=== PATIENT | female | born 1950 | race Caucasian/White ===

== ENCOUNTER 2017-05-28 08:18 | Emergency (ER) | payer MEDICARE, SELFPAY ==
[2017-05-28 08:20] VITALS: BP 153/66; PULSE 75; RESP 16; TEMP 36.4; O2SAT 99; BMI 23.0
[2017-05-28] MEDS: Ondansetron 4 MG/2 ML Vial IV (08:47)
[2017-05-28 08:55] LABS: Absolute Lymphocyte Count 0.64 X10^3/ul (0.83-4.51); Absolute Neutrophil Count 9.2 X10^3/uL (2.0-7.7); Basophil# 0.02 X10^3/uL; Basophil% 0.2 % (0-1); Eosinophil# 0.05 X10^3/uL; Eosinophils% 0.5 % (0-5); Hematocrit 40.2 % (37-47); Hemoglobin 13.3 g/dl (12.0-15.0); Lymphocyte # 0.64 X10^3/ul (4.0); Lymphocyte % 6.1 % (19-41); Mean Corp Hgb Conc 33.1 g/gl (32-36); Mean Corpuscular Hgb 31.4 pg (27.0-32.0); Mean Corpuscular Volume 94.8 fL (81-99); Monocyte# 0.55 X10^3/uL; Monocyte% 5.3 % (0-10); Neutrophil % 87.8 % (47-70); POSITIVE COUNT NO; POSITIVE DIFFERENTIAL NO; POSITIVE MORPHOLOGY NO; Platelet Count 316 K/mm3 (150-450); RBC Distribution Width CV 14.3 % (11.6-14.6); Red Blood Count 4.24 M/mm3 (4.2-5.4); White Blood Count 10.5 K/mm3 (4.4-11.0)
--- NOTE | 2017-05-28 09:12 | ED.DCSUM_ITS ---
- ER Visit Summary Date of Service: 05/28/17 Chief Complaint: Abdominal pain that has localized to the right side History of Present Illness: The patient is a 66 F who has a history of rheumatoid arthritis and fibromyalgia presents with abdominal pain that started on Wednesday. Initially the pain was bilateral is now localized to the right side. Where patient points is near the right costal margin. She also reported bilateral back pain initially. She now has intermittent midline intrascapular pain. Pain is made worse with movement and apparently food. She does have intolerance to greasy and fried foods. She does report nausea without vomiting or diarrhea. She denies hematemesis, melena hematochezia. She denies dysuria, frequency, urgency or hematuria. She denies fever, chills or night sweats. She denies weight loss or weight gain. She denies chest pain, palpitations, fast heart rate. She denies anorexia. She did eat yogurt and have something to drink at 0630. Patient denies any ocular, visual auditory symptoms. Patient denies any URI symptoms. Patient denies cough, dyspnea, dyspnea on exertion, orthopnea or PND. Patient denies any history of trauma and denies any skin lesions. She denies paresthesia, anesthesia or motor weakness lower extremity. She denies any bowel bladder dysfunction. She was seen by her doctor on Wednesday and had outpatient tests that were done. Urine was negative for blood. Chest x-ray and rib x-rays were obtained and were unremarkable. Daughter gave me the disc from [facility] for review. Physical Examination: Vital signs remarkable for an elevated blood pressure 153/ 66. Afebrile and she is not hypoxic. Heart rate and respiratory rate are normal. Head is atraumatic normocephalic. Pupils are equal round reactive. Extraocular muscles are intact. TMs are pearly white with landmarks noted. Nares patent with no drainage. Posterior pharynx without erythema or exudate. Uvula is midline. There is no dysphonia or dysphasia. Trachea is midline. There is no stridor with auscultation of the neck. Heart is regular without murmur, gallop or rub. S1 and S2 are normal. Lungs are clear to auscultation with good movement of air bilaterally. Abdomen is soft with decreased bowel sounds and slight tympany. There is a clinical Gonzalez sign. There is no rebound tenderness. Specifically no tenderness in the proximity of McBurney's point. There is no CVA tenderness noted. There is no rash or lesions to suggest herpes varicella-zoster. There is no asymmetry, swelling, discoloration , leg vein distention, palpable cords or tenderness along the distribution of the deep venous system. Neuro exam is nonfocal Test Results: White count is 10.5 thousand with 85 segs no bands 6 lymphs. Electrode panel was marked for potassium 3.0. Hepatic profile is unremarkable. Calcium is low however albumin is low. Ultrasound of the right upper quadrant was obtained and reveals a fatty liver and a sonographic Gonzalez sign. Emergency Department Course and Treatment: IV was established and she was medicated with 4 mg of Zofran and 4 mg of morphine. She did inform me that she took half of a Percocet tablet this morning. To evaluate her right upper quadrant pain with a clinical Gonzalez sign a CBC, hepatic and lipase were ordered. Since she had yogurt at 0630 will not be able to obtain ultrasound of the right upper quadrant until 1230. Patient and family has been made aware of this fact. Treatment Plan: Home-going instructions and a outpatient HIDA scan with EF and report to go to PCP Willard Townsend Disposition: Discharged to home with family in stable and improved condition Impression: Right upper quadrant pain with sonographic Gonzalez sign Fatty liver Hypokalemia This note was generated with [employer] dictation software. It may contain incorrect words, spelling, and punctuation that were not noted in review of the chart prior to signing ED Disposition - Plan for ED Patient: Disposition: Home or Assisted Living Chief Complaint: Flank Pain Instructions: ED Abdominal Pain Gallstone Poss Referrals: Beba Townsend NP-C [Primary Care Provider] - 1-2 Weeks
[2017-05-28 09:13] LABS: AST(SGOT) 16 U/L (15-37); Alanine Aminotransfer ALT/SGPT 21 U/L (13-56); Albumin, Serum 2.9 g/dL (3.2-5.0); Alkaline Phosphatase 97 U/L (45-117); Anion Gap 7 (5-15); BUN 3 mg/dL (7-18); BUN/Creat Ratio 5.4 RATIO (10-20); Bilirubin, Direct 0.18 mg/dL (0.00-0.30); Calcium,Total 7.9 mg/dL (8.5-10.1); Chloride 102 mmol/L (98-107); Creatinine, Serum 0.56 mg/dL (0.55-1.02); EST Glomerular Filtration Rate 116 mL/min (>60); Est Glom Filt Rate - Afr Amer 140 mL/min (>60); Estimated Creatinine Clearance 71.94 ml/min; Globulin 3.4 g/dL (2.2-4.2); Glucose 100 mg/dL (74-106); Lipase 156 U/L (73-393); Protein, Total 6.3 g/dL (6.4-8.2); Sodium Level 136 mmol/L (136-145)
--- NOTE | 2017-05-28 10:02 | US_ITS ---
STUDY: ABDOMINAL ULTRASOUND - RIGHT UPPER QUADRANT REASON FOR VISIT: Female, 66 years old. Right upper quadrant pain. TECHNIQUE: Ultrasound evaluation of the right upper quadrant was performed with real-time and static block-scale imaging. TECHNICAL QUALITY: Adequate. COMPARISON: None. FINDINGS: Liver: The liver measures 11.4 cm. There is increased echogenicity consistent with fatty infiltration. The bile ducts are within normal limits. There is hepatic color flow. The direction of portal flow is hepatopetal. There is no demonstrated mass lesion. Gallbladder: Normal distended gallbladder. The gallbladder wall measures 2.0 mm. There is a positive sonographic Gonzalez's sign. There is no pericholecystic fluid. There are no gallstones. Common Bile Duct (C.B.D.): The common bile duct measures 6.0 mm. Pancreas: Normal size of the head, body of the pancreas. The tail portion is obscured due to overlying bowel gas. There is normal echogenicity of the pancreas. There is no demonstrated pancreatic mass or cyst. Right Kidney: Normal size of the right kidney. The right kidney measures 9.2 cm x 5.4 cm x 4.1 cm. Normal renal cortex. The right cortex measures 1.2 cm. There is no demonstrated renal mass or cyst. Mild fullness of the right renal collecting system. US/Gallbladder IMPRESSION: Mild degree of fatty infiltration of the liver. Positive sonographic Gonzalez's sign. Mild fullness of the right renal collecting system. Electronically Signed: Nitish Ordaz MD at 13:37 EDT Tel [phone], Service support ,
[2017-05-28 11:22] VITALS: BP 136/70; PULSE 61; RESP 18; O2SAT 100
[2017-05-28 13:35] VITALS: BP 130/70; PULSE 68; RESP 18; O2SAT 100
[2017-05-28 15:04] VITALS: BP 124/80; PULSE 68; RESP 16; O2SAT 100
== END 2017-05-28 15:12 | disposition home or self-care (01) ==
PROVIDERS: Emergency Provider Emergency Medicine; Family Provider Nurse Practitioner Family; PCP Nurse Practitioner Family
DX: R10.11 Right upper quadrant pain (principal); K76.0 Fatty (change of) liver, not elsewhere classified; E87.6 Hypokalemia; M06.9 Rheumatoid arthritis, unspecified; M79.7 Fibromyalgia; Z72.0 Tobacco use; Z79.899 Other long term (current) drug therapy
CPT/HCPCS: 76705; 80048; 80076; 83690; 85025; 96374; 96375; 99284; J2405

== ENCOUNTER → 2017-05-31 09:01 | Outpatient (CLI) | payer MEDICARE, SELFPAY ==
--- NOTE | 2017-05-31 09:05 | NM_ITS ---
CLINICAL: Female, 66 years old. Abdominal pain. NUCLEAR BILIARY SCAN TECHNIQUE: Following the intravenous administration of 5.5 mCi of Tc Mebrofenin, hepatobiliary images was performed. Cholecystokinin (0.02 ug/kg) was then administered intravenously over a 30 minute period. COMPARISON STUDIES : Comparison is made with prior ultrasound of the abdomen dated May 28, 2017. FINDINGS: Relatively prompt and homogeneous radiopharmaceutical concentration is noted by a normal sized liver. There are no parenchymal defects noted.. Gallbladder activity is identified at 30 minutes post radiopharmaceutical administration. Small bowel activity is identified at 60 minutes post radiopharmaceutical administration. Washout of the radiopharmaceutical by the hepatic parenchyma occurs in a normal fashion on qualitative inspection. The post Cholecystokinin gallbladder ejection fraction is calculated at INSERT TIME minutes following Cholecystokinin administration was noted to be 38% (normal greater than 35%). NM/Hepatobilliary Imaging IMPRESSION: Normal 99m TC Mebrofenin hepatobiliary imaging survey with Cholecystokinin. A gallbladder ejection fraction calculated to be greater than 35% following the administration of Cholecystokinin makes the probability of functional hepatobiliary disease (gallbladder and/or sphincter of Oddi dyskinesia) and/or organic hepatobiliary disease (chronic acalculous cholecystitis and/or cystic duct syndrome) to be low. (Kalin Richards al, Journal of Nuclear Medicine 32:1695, 1991). Electronically Signed: Nitish Ordaz MD at 11:04 EDT Tel [phone], Service support ,
== END ==
PROVIDERS: Family Provider Nurse Practitioner Family; PCP Nurse Practitioner Family; Visit Provider Emergency Medicine
DX: R10.11 Right upper quadrant pain (principal)
CPT/HCPCS: 78226; A9537

== ENCOUNTER 2018-12-29 09:32 | Emergency (ER) | payer MEDICARE, SELFPAY ==
[2018-12-29 09:33] VITALS: BP 187/89; PULSE 78; RESP 14; TEMP 36.7; O2SAT 99; BMI 24.0
--- NOTE | 2018-12-29 09:55 | ED.DCSUM_ITS ---
History of Present Illness Chief Complaint: Allergic Reaction Informant: Patient, Family Onset: - December 21 Context: Sudden Onset Timing: Continuous Quality: Reticulocyte erythematous rash Location: Upper extremities, face and anterior neck Current Severity: Moderate Maximum Severity: Moderate Worsened by: Nothing Relieved by: Nothing Associated Symptoms: No associated symptoms Narrative: Patient is a 68-year-old woman who was seen in urgent care and treated with 6- day course of prednisone and Kenalog injection for presumed poison sumac. Patient states she is been taking Benadryl. She presents today because of facial swelling with a pruritic erythematous rash. She states she knows it is poison sumac based on the plant leaf. She has no other symptoms. Prior similar symptoms: Yes Recent Illness/Hospitalization: Yes - Past Medical History (1) History of hypertension Status: Acute Past Medical History - Allergies and Home Meds Allergies/Adverse Reactions: Allergies codeine Allergy (Verified 12/29/18 09:33) Nausea Primary Care Physician: Beba Townsend NP-C [Primary Care Provider] - Prior records reviewed: No Lives: Alone Smoking Status: Never smoker Review of Systems General: Denies: Chills, Fever Eyes: Denies: Visual changes - bilaterally, Blurred Vision - bilaterally Skin: Reports: Rash, Wounds. Denies: Abscess, Abrasions Allergy: Reports: - - Complains of facial swelling.. Denies: Uticaria, Swelling of the mouth, Swelling of the tongue Physical Exam Vital Signs/Narrative: Vital Signs Temp Pulse Resp BP Pulse Ox 12/29/18 09:33 98.1 F 78 14 187/89 H 99 Inital Vital Signs reviewed: Yes General: Well nourished, Well developed, No Acute Distress Head: Normocephalic, Atraumatic Eyes: Perrl, EOMI. Negative for: Pale conjunctiva, Scleral icterus ENT: No rhinorrhea Cardiovascular: Regular rate, Regular rhythm Respiratory: No distress Skin: Normal color, Rash - He has a rash consistent with contact dermatitis face, anterior neck and upper extremity Neurological: Alert, Oriented x3, Cranial nerves II-XII grossly intact, Normal Strength, Normal Sensation Psychological: Normal affect, Normal Mood Diagnostic/Tx/Re-eval - Medical Decision Making Patient's history and physical exam is consistent with contact dermatitis. Since patient was only on a 6-day course of prednisone suspect duration was not long enough and reason why rash has not resolved and worsening. She received 60 mg of prednisone in the emergency department and was discharged with tapering dose over 14 days. ED Disposition - Plan for ED Patient: Disposition: Home or Assisted Living Diagnosis: Allergic dermatitis due to poison sumac Prescriptions: Prednisone 10 mg PO UD #33 tab Prescription Printed Referrals: Beba Townsend NP-C [Primary Care Provider] - 1 Week if not improving Additional Instructions: Take prednisone until gone. Do not apply Benadryl cream or liquid to your skin and do not use a steroid cream on your face.
[2018-12-29] MEDS: predniSONE 20 MG Tablet 60 MG PO (11:04)
== END 2018-12-29 11:14 | disposition home or self-care (01) ==
PROVIDERS: Emergency Provider Emergency Medicine; Family Provider Nurse Practitioner Family; PCP Nurse Practitioner Family
DX: L23.7 Allergic contact dermatitis due to plants, except food (principal); I10 Essential (primary) hypertension
CPT/HCPCS: 99283

== ENCOUNTER 2019-01-16 13:13 | Emergency (ER) | payer MEDICARE, SELFPAY ==
[2019-01-16 13:14] VITALS: BP 146/68; PULSE 80; RESP 19; TEMP 37.1; O2SAT 99; BMI 22.4
--- NOTE | 2019-01-16 13:43 | RAD_ITS ---
STUDY: X-RAY - LUMBAR SPINE REASON FOR EXAM: Female, 68 years old. Low back pain due to injury. TECHNIQUE: AP and lateral view(s) of the lumbar spine were obtained. COMPARISON: None FINDINGS: There is an exaggerated lumbar lordosis. There is no substantial scoliosis. Minimal anterolisthesis of L4 on L5. A grade 1 anterolisthesis of L5 on S1 with spondylolysis of the pars interarticularis. Normal vertebral bodies and endplates. Mild degree of disc space narrowing at the L5-S1 level. Mild degree of loss of height of the L2 vertebrae. Almost complete collapse of the T9 vertebrae. The soft tissue structures are unremarkable. RAD/Lumbar Spine 2 or 3 Views IMPRESSION: Degenerative changes of the spine, as detailed above. Spondylolisthesis of L5 on S1 due to spondylolysis of the pars interarticularis of the L5 vertebrae. Mild degree of loss of height of the L2 vertebrae. Almost complete collapse of the T9 vertebrae. Electronically Signed: Nitish Ordaz, at 15:04 EST , Service support ,
[2019-01-16] MEDS: oxyCODONE 5 MG Tablet PO (13:59)
--- NOTE | 2019-01-16 14:25 | ED.DCSUM_ITS ---
History of Present Illness Chief Complaint: Back Informant: Patient Onset: Days Context: Gradual Onset Timing: Continuous Current Severity: Moderate Maximum Severity: Moderate Narrative: Patient presents to the emergency department with atraumatic low back pain. She states she has a history of back pain, but this feels different. States over the past 3 weeks, she had worsening, burning pain across her low back. She states is worse when she moves or twists. She does have history of prior compression fracture of her T9 vertebrae. She has had epidural injections in the past. She denies any problems with bowel or bladder. She denies any fevers or chills. She has not taken anything for her pain today. She did state that her primary care put on baclofen which she states is not really helped much. Prior similar symptoms: No Recent Illness/Hospitalization: No Past Medical History - Allergies and Home Meds Allergies/Adverse Reactions: Allergies codeine Allergy (Verified 01/16/19 13:16) Nausea Primary Care Physician: Beba Townsend NP-C [Primary Care Provider] - Prior records reviewed: Yes Past Medical History: - Smoking Status: Never smoker Review of Systems ROS: - COPD, back pain General: Denies: Chills, Fever, Sweats Eyes: Denies: Visual changes - bilaterally, Diplopia ENT: Denies: Rhinorrhea, Sore throat Cardiovascular: Denies: Chest pain, Palpitations Respiratory: Denies: Dyspnea, Cough, Dyspnea on exertion Gastrointestinal: Denies: Abdominal pain, Nausea, Vomiting, Diarrhea, Melena, Hematochezia Genitourinary: Denies: Dysuria, Hematuria, Frequency Musculoskeletal: Reports: Back pain. Denies: Extremity Pain Skin: Denies: Rash, Wounds Neurological: Denies: Headache, Weakness, Numbness Physical Exam Vital Signs/Narrative: Vital Signs Temp Pulse Resp BP Pulse Ox 01/16/19 13:14 98.7 F 80 19 H 146/68 H 99 Inital Vital Signs reviewed: Yes General: Well nourished, Well developed, No Acute Distress Head: Normocephalic, Atraumatic Eyes: Perrl, EOMI ENT: Moist mucous membranes, No rhinorrhea Neck: Supple, Nontender Cardiovascular: Regular rate, Regular rhythm, No murmurs Respiratory: No distress, CTA bilaterally, Chest nontender Abdomen: Soft, Nontender, Nondistended, Normal bowel sounds Back: Nontender, Normal Inspection Extremities: Nontender, No edema Skin: Normal color, No rash Neurological: Alert, Oriented x3, Cranial nerves II-XII grossly intact, Normal Strength, Normal Sensation Psychological: Normal affect, Normal Mood Diagnostic/Tx/Re-eval Clinical Impression(s) from Imaging Studies Lumbar Spine X-Ray 01/16/19 13:43 IMPRESSION: Degenerative changes of the spine, as detailed above. Spondylolisthesis of L5 on S1 due to spondylolysis of the pars interarticularis of the L5 vertebrae. Mild degree of loss of height of the L2 vertebrae. Almost complete collapse of the T9 vertebrae. Electronically Signed: Nitish Ordaz, at 15:04 EST , Service support , - Medical Decision Making The patient presents with low back pain. Is worse when she moves. She has no red flag symptoms. She has no weakness of her extremities. She does have history of compression fracture. X-rays were obtained of the low back. There was some loss of disc height of L2. I do feel that she may have a mild compression fracture of this area. She was given oral analgesics and was resting comfortably. At this point I do feel that she is safe for outpatient therapy. She will be given a short course of analgesics and was counseled to f ollow-up with her primary care she is likely going to the bone scan and may benefit from injections that she has had in the past. She will be discharged home. Impression 1. L2 compression fracture ED Disposition - Plan for ED Patient: Disposition: Home or Assisted Living Instructions: Back Fracture (Compression Fracture) Prescriptions: Oxycodone HCl/Acetaminophen [Percocet 5/325] 1 tab PO Q6H PRN PRN 3 Days #12 tab PRN Reason: Pain Prescription Printed Referrals: Beba Townsend NP-C [Primary Care Provider] -
[2019-01-16 15:37] VITALS: BP 160/88; PULSE 67; RESP 18; O2SAT 100
== END 2019-01-16 15:50 | disposition home or self-care (01) ==
PROVIDERS: Emergency Provider Emergency Medicine; Family Provider Nurse Practitioner Family; PCP Nurse Practitioner Family
DX: M48.56XA Collapsed vertebra, not elsewhere classified, lumbar region, initial encounter for fracture (principal)
CPT/HCPCS: 72100; 99283

== ENCOUNTER 2019-02-28 21:17 | Emergency (ER) | payer MEDICARE, SELFPAY ==
[2019-02-28 21:18] VITALS: BP 165/77; PULSE 75; RESP 17; TEMP 36; O2SAT 100; BMI 22.4
--- NOTE | 2019-02-28 21:40 | ED.VIS.GEN ---
History of Present Illness Chief Complaint: Back Informant: Patient Onset: Today Context: Sudden Onset Timing: Continuous Current Severity: Moderate Maximum Severity: Moderate Narrative: The patient is a 68-year-old female with history of prior L2 compression fracture who follows with pain management the presents to the emergency department with back pain. Patient states that she is scheduled for outpatient epidural injection. She states that she had her medications refilled she is been doing well. Today, she was doing dishes and arched her back. She had sudden onset severe pain. It does not radiate down her legs. She denies any change in gait, trouble urinating, or numbness in her groin. She states it is just pain. Prior similar symptoms: Yes Recent Illness/Hospitalization: No Past Medical History - Allergies and Home Meds Allergies/Adverse Reactions: Allergies codeine Allergy (Verified 02/28/19 21:18) Nausea Primary Care Physician: Beba Townsend NP-C [Primary Care Provider] - Prior records reviewed: Yes Past Medical History: - - COPD, compression fracture Surgical History: noncontributory Smoking Status: Former smoker Review of Systems General: Denies: Chills, Fever, Sweats Eyes: Denies: Visual changes - bilaterally, Diplopia ENT: Denies: Rhinorrhea, Sore throat Cardiovascular: Denies: Chest pain, Palpitations Respiratory: Denies: Dyspnea, Cough, Dyspnea on exertion Gastrointestinal: Denies: Abdominal pain, Nausea, Vomiting, Diarrhea, Melena, Hematochezia Genitourinary: Denies: Dysuria, Hematuria, Frequency Musculoskeletal: Reports: Back pain. Denies: Extremity Pain Skin: Denies: Rash, Wounds Neurological: Denies: Headache, Weakness, Numbness Physical Exam Vital Signs/Narrative: Vital Signs Temp Pulse Resp BP Pulse Ox 02/28/19 21:18 96.8 F L 75 17 165/77 H 100 Inital Vital Signs reviewed: Yes General: Well nourished, Well developed, No Acute Distress Head: Normocephalic, Atraumatic Eyes: Perrl, EOMI ENT: Moist mucous membranes, No rhinorrhea Neck: Supple, Nontender Cardiovascular: Regular rate, Regular rhythm, No murmurs Respiratory: No distress, CTA bilaterally, Chest nontender Abdomen: Soft, Nontender, Nondistended, Normal bowel sounds Back: Normal Inspection, Spinal tenderness Extremities: Nontender, No edema Skin: Normal color, No rash Neurological: Alert, Oriented x3, Cranial nerves II-XII grossly intact, Normal Strength, Normal Sensation Psychological: Normal affect, Normal Mood Diagnostic/Tx/Re-eval - Medical Decision Making The patient presents to the emergency department with back pain. She has a history of compression fracture. Her pulses are normal. Her reflexes are normal. She has no pain going down her legs. I did repeat her x-rays. There is no progression of her fracture. She was given analgesics with improvement. At this point, I do feel this is an exacerbation of her chronic pain secondary to her compression fracture. She is safe outpatient therapy. Patient is comfortable with this plan of care and she will follow-up with pain management. Impression 1. Acute on chronic low back pain with compression fracture ED Disposition - Plan for ED Patient: Instructions: BACK PAIN (Acute or Chronic), Back Fracture (Compression Fracture) Referrals: Beba Townsend NP-C [Primary Care Provider] -
[2019-02-28] MEDS: Morphine 4 MG/ML Syringe IV ×2 (22:19→23:06)
[2019-02-28] MEDS: Ondansetron 4 MG/2 ML Vial IV (22:19)
--- NOTE | 2019-02-28 22:46 | RAD_ITS ---
STUDY: X-RAY - LUMBAR SPINE REASON FOR EXAM: Female, 68 years old. lower back pain. hx of T9 and L2 fx TECHNIQUE: 3 view(s) of the lumbar spine were obtained. COMPARISON: Lumbar spine x-ray dated January 16, 2019 FINDINGS: Normal lumbar lordosis. Mild levoscoliosis is reidentified. Chronic T9 vertebral plana deformity with significant loss of height as well as L2 chronic compression deformity. Anterolisthesis of L5 on S1 of 4 to 5 mm is present and unchanged from the prior study. Mild disc space narrowing is present at L5-S1. The remaining disc spaces are preserved. No acute fractures are seen. The soft tissue structures are unremarkable. RAD/Lumbar Spine 2 or 3 Views IMPRESSION: Degenerative changes of the spine, as detailed above. Electronically Signed: Cooper Manuel MD at 23:09 EST , Service support ,
[2019-02-28 23:18] VITALS: BP 150/72; PULSE 80; RESP 14; O2SAT 96
== END 2019-02-28 23:30 | disposition home or self-care (01) ==
LOC: ED 21:38
PROVIDERS: Emergency Provider Emergency Medicine; Family Provider Nurse Practitioner Family; PCP Nurse Practitioner Family
DX: M54.5 Low back pain (principal); G89.29 Other chronic pain; S32.029D Unspecified fracture of second lumbar vertebra, subsequent encounter for fracture with routine healing; J44.9 Chronic obstructive pulmonary disease, unspecified; Z87.891 Personal history of nicotine dependence; Z79.891 Long term (current) use of opiate analgesic; X58.XXXD Exposure to other specified factors, subsequent encounter
CPT/HCPCS: 72100; 96374; 96375; 96376; 99282; A4216; J2405

== ENCOUNTER 2019-03-09 09:02 | Emergency (ER) | payer MEDICARE, SELFPAY ==
[2019-03-09 09:03] VITALS: BP 153/88; PULSE 83; RESP 16; TEMP 35.9; BMI 22.2
--- NOTE | 2019-03-09 09:27 | ED.DCSUM_ITS ---
- ER Visit Summary Date of Service: 03/09/19 Chief Complaint: Acute on chronic back pain History of Present Illness: The patient is a 68 F history of compression fractures of the lumbar vertebra #2. Also has known degenerative disc disease of L5-S1. Sees pain management in [place]. She has had an epidural injection a while ago. Not recently. Patient states she is having more pain. She denies any fall or trauma. She denies any fever. She denies any weakness, numbness of the lower extremities or any bowel or bladder incontinence or retention. She has not seen a airport operations specialist. Physical Examination: Older female no acute distress. Vital signs are stable and afebrile. H EENT exam unremarkable. Neck nontender. Lungs clear to auscultation bilaterally. Heart regular rhythm no murmur. Abdomen soft nontender normal bowel sounds no peritoneal signs. Patient is moving all 4 extremities. Normal motor strength sensation both upper and lower extremities. No cauda equina. No saddle anesthesia. Dorsi and plantarflexion intact. Back exam shows a large lipoma in her upper back. Spine otherwise is unremarkable. She complains of pain in the lumbar spine is not really reproducible. There is no ecchymosis or bruising. No redness or warmth. Neurologic exam is u nremarkable. Again no cauda equina. Test Results: None Emergency Department Course and Treatment: IM injection of morphine. P.o. Zofr an. Treatment Plan: Follow-up with a airport operations specialist. I did recommend Dr. Fletcher Ramachandran of the [facility] to the patient. Disposition: Discharge Impression: Acute on chronic back pain with a history of degenerative disc disease and prior compression fracture This note was generated with [employer] dictation software. It may contain incorrect words, spelling, and punctuation that were not noted in review of the chart prior to signing ED Disposition - Plan for ED Patient: Referrals: Beba Townsend NP-C [Primary Care Provider] -
--- NOTE | 2019-03-09 09:31 | DCINST.ED_ITS ---
ED Disposition - Plan for ED Patient: Disposition: Home or Assisted Living Instructions: BACK PAIN (Acute or Chronic) Referrals: Beba Townsend NP-C [Primary Care Provider] - As Needed Fletcher Ramachandran MD [NON-STAFF] - As soon as possible Additional Instructions: Follow-up with a environmental health specialist for further evaluation of your back. They may want to get an MRI. They can also evaluate your back and the imaging results to lay out a plan of treatment and/or surgery if necessary.
[2019-03-09] MEDS: Ondansetron ODT 4 MG Tablet 8 MG PO (09:52)
[2019-03-09] MEDS: morphine 10 MG/ML Syringe IM (09:52)
[2019-03-09 10:21] VITALS: BP 142/61; PULSE 74; RESP 16; O2SAT 97
== END 2019-03-09 10:22 | disposition home or self-care (01) ==
LOC: ED 09:39
PROVIDERS: Emergency Provider Emergency Medicine; Family Provider Nurse Practitioner Family; PCP Nurse Practitioner Family
DX: M54.5 Low back pain (principal); G89.29 Other chronic pain; M51.37 Other intervertebral disc degeneration, lumbosacral region
CPT/HCPCS: 96372; 99282

== ENCOUNTER 2019-03-09 19:11 | Inpatient (IN) | payer MEDICARE, SELFPAY ==
[2019-03-09 09:03] VITALS: BMI 22.2
[2019-03-09 19:12] VITALS: BP 148/90; PULSE 84; RESP 16; TEMP 36.7; O2SAT 97; BMI 22.2
--- NOTE | 2019-03-09 19:50 | EKG12_ITS ---
Test Reason : DYSRHYTHMIA Blood Pressure : / mmHG Vent. Rate : 078 BPM Atrial Rate : 078 BPM P-R Int : 156 ms QRS Dur : 068 ms QT Int : 398 ms P-R-T Axes : 010 065 027 degrees QTc Int : 453 ms Normal sinus rhythm Normal ECG Confirmed by BESSIE IRVIN ([id number]), magazine editor DELVIN GOMEZ ([id number]) on 03/14/2019 3:04:01 PM Referred By: Oh Paalcio Confirmed By:BESSIE IRVIN
--- NOTE | 2019-03-09 19:51 | ED.VIS.GEN ---
History of Present Illness Chief Complaint: Abn Labs Detail of Chief Complaint: Hyponatremia Informant: Patient Onset: Today Narrative: Patient has had low back pain without sciatica for the past week or 2. It was worse in the last couple days, causing her to lose some sleep, and because of that she feels tired. She was here in the ER earlier today and had a dose of morphine for her low back pain which helped and she went home and had some outpatient labs per her PCP, and when the sodium came back at 115 she was advised to come to the ER right away. She has had no lapses in consciousness or seizures or confusion. She states she feels a little lightheaded earlier but she thought it was because of the morphine, felt a little constipated after that, and states that she has tried to stay well-hydrated by drinking about 8 bottles of water today. She usually drinks a lot of water but they cannot quantify, but that is a lot for her. - Past Medical History (1) History of hypertension Status: Chronic Past Medical History - Allergies and Home Meds Allergies/Adverse Reactions: Allergies codeine Allergy (Verified 03/09/19 19:14) Nausea Primary Care Physician: Beba Townsend NP-C [Primary Care Provider] - Surgical History: noncontributory Lives: With Family Smoking Status: Former smoker Review of Systems General: Reports: Malaise. Denies: Chills, Fever, Sweats Eyes: Denies: Visual changes - bilaterally, Diplopia ENT: Denies: Rhinorrhea, Sore throat Cardiovascular: Denies: Chest pain, Palpitations Respiratory: Denies: Dyspnea, Cough, Dyspnea on exertion Gastrointestinal: Denies: Abdominal pain, Nausea, Vomiting, Diarrhea, Melena, Hematochezia Genitourinary: Denies: Dysuria, Hematuria, Frequency Musculoskeletal: Reports: Back pain. Denies: Neck pain, Extremity Pain Skin: Denies: Rash, Wounds Neurological: Denies: Headache, Weakness, Numbness Physical Exam Vital Signs/Narrative: Vital Signs Temp Pulse Resp BP Pulse Ox 03/09/19 19:12 98.0 F 84 16 148/90 H 97 Inital Vital Signs reviewed: Yes General: Well nourished, Well developed, No Acute Distress Head: Normocephalic, Atraumatic Eyes: Perrl, EOMI ENT: Moist mucous membranes, No rhinorrhea Neck: Supple, Nontender Cardiovascular: Regular rate, Regular rhythm, No murmurs Respiratory: No distress, CTA bilaterally, Chest nontender Abdomen: Soft, Nontender, Nondistended, Normal bowel sounds Back: Normal Inspection, - - diffuse lumbosacral tenderness paraspinal bilat.. Negative for: Spinal tenderness Extremities: Nontender, No edema, - - neg straight leg raises bilat. Skin: Normal color, No rash Neurological: Alert, Oriented x3, Cranial nerves II-XII grossly intact, Normal Strength, Normal Sensation Psychological: Normal affect, Normal Mood Diagnostic/Tx/Re-eval Laboratory Results 03/09/19 03/09/19 03/09/19 20:03 20:03 21:05 WBC 13.8 H RBC 4.82 Hgb 14.1 Hct 40.7 MCV 84.4 MCH 29.3 MCHC 34.6 RDW Std Deviation 39.6 RDW Coeff of Timo 12.8 Plt Count 354 MPV 7.8 Immature Gran % (Auto) 1.200 H Neut % (Auto) 84.1 H Lymph % (Auto) 6.2 L [place] % (Auto) 7.5 Eos % (Auto) 0.9 Baso % (Auto) 0.1 Absolute Neuts (auto) 11.6 H Absolute Lymphs (auto) 0.85 Nucleated RBC % 0 Sodium 117 L* Potassium 4.0 Chloride 83 L Carbon Dioxide 28.0 Anion Gap 6 BUN 6 L Creatinine 0.54 L Estim Creat Clear Calc 39.21 Est GFR (MDRD) Af Amer 146 Est GFR (MDRD) Non-Af 120 BUN/Creatinine Ratio 11.2 Glucose 111 H Calcium 8.7 Urine Color Yellow Urine Clarity Clear Urine pH 6.0 Ur Specific [place] 1.020 Urine Protein 15 H Urine Glucose (UA) Normal Urine Ketones 5 H Urine Occult Blood 10 H Urine Nitrite Negative Urine Bilirubin Negative Urine Urobilinogen Normal Ur Leukocyte Esterase 500 H Urine RBC 0 SEEN Urine WBC 25-50 SEEN Ur Squamous Epith Cells 5-10 SEEN Ur Renal Epithelial Cell 0-5 SEEN Urine Bacteria 0 SEEN Urine Mucus 0 SEEN - Medical Decision Making We confirmed the patient's hyponatremia at 117 and associated hypochloremia. The rest of her electrolytes are okay. She does apparently have a urinary tract infection. Unknown if that is related or not. She could have water intoxication with the amount of water that she drinks, but she will probably need further work-up to rule out other things in the hospital. Started her on slow normal saline and we cultured her urine and gave her a dose of Rocephin. ED Disposition - Plan for ED Patient: Disposition: Acute Care Hospital [facility] Diagnosis: Hyponatremia, UTI (urinary tract infection) Referrals: Beba Townsend, ENEDINA-C [Primary Care Provider] -
[2019-03-09] MEDS: 0.9% Normal Saline 1,000 ML 125 ML IV (20:09)
[2019-03-09 20:14] LABS: Absolute Lymphocyte Count 0.85 X10^3/uL (0.83-4.51); Absolute Neutrophil Count 11.6 X10^3/uL (2.0-7.7); Basophil# 0.02 X10^3/uL; Basophil% 0.1 % (0-1); Eosinophil# 0.12 X10^3/uL; Eosinophils% 0.9 % (0-5); Hematocrit 40.7 % (37-47); Hemoglobin 14.1 g/dL (12.0-15.0); Lymphocyte # 0.85 X10^3/ul (4.0); Lymphocyte % 6.2 % (19-41); Mean Corp Hgb Conc 34.6 g/dL (32-36); Mean Corpuscular Hgb 29.3 pg (27.0-32.0); Mean Corpuscular Volume 84.4 fL (81-99); Mean Platelet Vol. 7.8 fl (6.2-12.0); Monocyte# 1.03 X10^3/uL; Monocyte% 7.5 % (0-10); NRBC Flagged by Analyzer 0 % (0-5); Neutrophil # 11.61 X10^3/uL (2.7-7.7); Neutrophil % 84.1 % (47-70); Platelet Count 354 K/mm3 (150-450); RBC Distribution Width CV 12.8 % (11.6-14.6); RBC Distribution Width SD 39.6 fl (35.1-43.9); Red Blood Count 4.82 M/mm3 (4.2-5.4); White Blood Count 13.8 K/mm3 (4.4-11.0)
[2019-03-09] MEDS: oxyCODONE 5 MG Tablet 2.5 MG PO (20:23)
[2019-03-09 20:26] VITALS: BP 118/65; PULSE 81; RESP 14; O2SAT 100
[2019-03-09 20:31] LABS: Anion Gap 6 (5-15); BUN 6 mg/dL (7-18); BUN/Creat Ratio 11.2 RATIO (10-20); Calcium,Total 8.7 mg/dL (8.5-10.1); Chloride 83 mmol/L (98-107); Creatinine, Serum 0.54 mg/dL (0.55-1.02); EST Glomerular Filtration Rate 120 mL/min (>60); Est Glom Filt Rate - Afr Amer 146 mL/min (>60); Estimated Creatinine Clearance 39.21 ml/min; Glucose 111 mg/dL (74-106); Sodium Level 117 mmol/L (136-145)
[2019-03-09 21:18] LABS: Bacteria 0 SEEN /hpf (None Seen); Mucous, Urine 0 SEEN /hpf (<or=2+); Red Blood Cells-Urine 0 SEEN /hpf (0-5)
[2019-03-09 21:25] LABS: Color, Urine Yellow (Yellow); Glucose, Dipstick Normal (Normal); Ketone-Dipstick 5 mg/dl (Negative); Leukocyte Esterase-Dipstick 500 /ul (Negative); Nitrite-Dipstick Negative (Negative); Occult Blood-Urine 10 /ul (Negative); Protein-Dipstick 15 mg/dl (Negative); Urine Bilirubin Dipstick Negative (Negative); Urine Clarity Clear (Clear); Urine Urobilinogen Normal (Normal)
[2019-03-09 21:38] LABS: White Blood Cells 25-50 SEEN /hpf (0-5)
[2019-03-09 21:39] LABS: Squamous Epithelial Cells - UA 5-10 SEEN /hpf (5-10)
[2019-03-09 21:40] LABS: Renal Epithelial Cells 0-5 SEEN /hpf (0-5)
[2019-03-09 21:50] VITALS: BP 118/65; PULSE 86; RESP 17; O2SAT 100
[2019-03-09] MEDS: Ceftriaxone 1 GM/50 ML BAG IV (23:40)
--- NOTE | 2019-03-09 23:48 | PCM.HP.STD ---
Problem List (1) Chronic back pain Status: Chronic (2) Severe hyponatremia Status: Acute (3) Alcohol abuse Status: Acute (4) Depression Status: Chronic (5) Fibromyalgia Status: Chronic (6) Hypertension Status: Chronic (7) UTI (urinary tract infection) Status: Suspected History of Present Illness Date of Admission: 03/09/19 Chief Complaint: Abnormal blood work. The patient is a 68 year old F patient with past medical history as mentioned above referred to the emergency department by her PCP for abnormal blood work. Today morning, patient came to the emergency department for acute on chronic low back pain, received IV morphine injection and she was discharged. Later on the day, she went to her PCPs office and she had blood work. She was found to have serum sodium of 115 and she was advised to come to ER by her PCP. Apart from her back pain which has been chronic, she had no other complaints. She denied abdominal pain, nausea or vomiting. She denied constipation or diarrhea. She denied urinary symptoms. She denied chest pain or shortness of breath. At this time, she mentioned that her back pain is getting better but still there. She will history of hypertension which seemed to be under control with atenolol. She will history of depression and fibromyalgia and she has been on duloxetine. She history of alcohol abuse, has been drinking every day for a very long time, more than 30 years and her last drink was last night. In the emergency department, her vital signs were stable. Her routine blood work was remarkable for mild leukocytosis, sodium of 117, otherwise normal. Urinalysis revealed clear urine, negative for nitrite, there was 500 leukocyte esterase, 25-50 WBCs and no bacteria seen. She is being admitted for severe hyponatremia, probable acute cystitis which is unlikely as well as alcohol abuse. Past Medical History Past Medical History (Chronic Problems): Chronic Problems Chronic back pain (Chronic) Depression (Chronic) Fibromyalgia (Chronic) Hypertension (Chronic) Allergies codeine Allergy (Verified 03/09/19 19:14) Nausea Home Medications: Ambulatory Orders Medication Instructions Recorded Duloxetine HCl 20 mg PO DAILY 05/28/17 Atenolol [Tenormin (beta vika)] 25 mg PO DAILY 01/16/19 Buspirone HCl 5 mg PO BID 01/16/19 Oxycodone HCl/Acetaminophen 1 ea PO PRN PRN 02/28/19 [Oxycodone-Acetaminophen 10-325] Surgical History: - - section, lipoma surgery. Psychiatric History: Depression COMPLAINT ADJUSTER History: No pertinent COMPLAINT ADJUSTER history Lives: With Family Smoking Status: Never smoker Alcohol: Heavy Drugs: None - *Family History Maternal History Items: No pertinent history Paternal History Items: No pertinent history Review of Systems Constitutional: Denies: Anorexia, Chills, Fever, Weakness Eyes: Denies: Blurred vision, Double vision, Drainage, Redness HEENT: Denies: Difficulty Hearing, Dysphasia, Ear Pain, Eye Pain, Nasal Congestion, Sore Throat Cardiovascular: Denies: Chest Pain, Chest Pressure, Chest Tightness, Edema, Heaviness, Palpitations, Syncope Respiratory: Denies: Cough, Pleuritic Pain, Shortness of Breath, Sputum production, Wheezing Gastrointestinal: Denies: Abdominal Pain, Constipation, Diarrhea, Nausea, Vomiting Genitourinary: Denies: Dysuria, Frequency, Hematuria Musculoskeletal: Reports: Back Pain. Denies: Arm Pain, Foot Pain Skin: Denies: Dryness, Rash Neurological: Denies: Balance problems, Double vision, Change in Speech, Slurred speech, Confusion, Incoordination, Numbness, Tingling Psychiatric: Reports: Depression. 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 Oral: Moist Mucosa, No Gingival or Mucosal Lesions/ Ulcerations Neck: Supple, No JVD, Negative Carotid Bruits, Trachea Midline, Thyroid Normal Size and Texture Lungs: Clear to auscultation, Normal air movement, No rhonchi, No wheeze, No rales Cardiovascular: Regular rate, Regular Rhythm, Normal S1, Normal S2, PMI Normal Abdomen: Bowel Sounds Present, Soft, Non Tender, Non-Distended, No Hepato-splenomegaly Extremities: No clubbing, No cyanosis, No edema Skin: No rashes, No breakdown Lymphatic: No Cervical, Supraclavicular, or Inguinal Adenopathy Neurological: Cranial nerves II-XII grossly intact, Motor Exam 5/5 strength throughout Psych/Mental Status: Normal Affect, Appropriate, Alert and oriented to time, place, person, mood and affect Laboratory Results 03/09/19 20:03: WBC 13.8 H, RBC 4.82, Hgb 14.1, Hct 40.7, MCV 84.4, MCH 29.3, MCHC 34.6, RDW Std Deviation 39.6, RDW Coeff of Timo 12.8, Plt Count 354, MPV 7.8, Immature Gran % (Auto) 1.200 H, Neut % (Auto) 84.1 H, Lymph % (Auto) 6.2 L, [place] % (Auto) 7.5, Eos % (Auto) 0.9, Baso % (Auto) 0.1, Absolute Neuts (auto) 11.6 H, Absolute Lymphs (auto) 0.85, Nucleated RBC % 0 03/09/19 20:03: Sodium 117 L*, Potassium 4.0, Chloride 83 L, Carbon Dioxide 28.0, Anion Gap 6, BUN 6 L, Creatinine 0.54 L, Estim Creat Clear Calc 39.21, Est GFR (MDRD) Af Amer 146, Est GFR (MDRD) Non-Af 120, BUN/Creatinine Ratio 11.2, Glucose 111 H, Calcium 8.7 03/09/19 21:05: Urine Color Yellow, Urine Clarity Clear, Urine pH 6.0, Ur Specific [place] 1.020, Urine Protein 15 H, Urine Glucose (UA) Normal, Urine Ketones 5 H, Urine Occult Blood 10 H, Urine Nitrite Negative, Urine Bilirubin Negative, Urine Urobilinogen Normal, Ur Leukocyte Esterase 500 H, Urine RBC 0 SEEN, Urine WBC 25-50 SEEN, Ur Squamous Epith Cells 5-10 SEEN, Ur Renal Epithelial Cell 0-5 SEEN, Urine Bacteria 0 SEEN, Urine Mucus 0 SEEN Current Medications Sodium Chloride () 1,000 mls @ 125 mls/hr IV .Q8H MICK Last Admin: 03/09/19 20:09 Dose: 125 mls/hr Documented by: Assessment/Plan All Active Problems Severe hyponatremia (Acute) Alcohol abuse (Acute) This is a 68 years old female patient referred to the emergency department by her PCP because of low sodium and she is being admitted for evaluation and treatment. #1 severe hyponatremia: Serum sodium was 115 at the PCPs office, now it is 117. No evidence of neurological deficit or seizure. Differential diagnoses include water intoxication versus chronic liver disease due to alcohol abuse. I think it is more likely because of chronic liver disease secondary to alcoholism. Patient does have hypervolemia as indicated by very low BUN and creatinine. Plan: Admit to PCU, cardiac monitoring, start IV fluids with normal saline, check serum and urine osmolality, urine sodium, urine chloride, urine creatinine, TSH, LFT, check serum magnesium and phosphorus, repeat CBC and BMP tomorrow morning, PT OT evaluation and treatment. #2 questionable acute cystitis: Urinalysis reviewed, at this time, I doubt acute cystitis. Patient received 1 dose of IV Rocephin in the ED. Urine culture sent. Patient denied any urinary symptoms. Plan to wait for urine culture, no more antibiotics at this time. #3 alcohol abuse: Patient has been drinking every day for more than 30 years. Last drink was last night. Plan: Blood alcohol level, urine drug screen, thiamine, folic acid, Ativan as needed. #4 hypertension: Blood pressure stable, continue atenolol. #5 depression/depression: Stable, continue BuSpar and duloxetine. #6 chronic back pain: She had an x-ray done on February 29, 2016 that revealed degenerative changes. Plan for ibuprofen PRN, OxyIR PRN. #7 DVT prophylaxis: Subcu Lovenox. This note was generated with [employer] dictation software. It may contain incorrect words, spelling, and punctuation that were not noted in checking the note before signing. Code Visit Inpatient E&M: 22110 Init Hosp L3
[2019-03-10] VITALS (13 sets, daily range): BP systolic 104–146; BP diastolic 54–68; PULSE 74–95; RESP 15–18; TEMP 36.4–36.8; O2SAT 97–100; BMI 22.2; BMI 22.3
[2019-03-10 00:20] LABS: Prothrombin Time (Protime)PT. 13.1 SECONDS (11.7-14.9)
[2019-03-10 00:42] LABS: Amphetamine Urine VISTA NEGATIVE (<1000 ng/mL); Barbiturate Urine VISTA NEGATIVE (< 200 ng/mL); Benzodiazepine Urine VISTA NEGATIVE (< 200 ng/mL); Cocaine Urine VISTA NEGATIVE (< 300 ng/mL); Ecstacy Urine VISTA NEGATIVE (< 500 ng/mL); Methadone Urine VISTA NEGATIVE (< 300 ng/mL); PCP Urine VISTA NEGATIVE (< 25 ng/mL); THC Urine VISTA NEGATIVE (< 50 ng/mL); Vista UDS pH Range 5
[2019-03-10 00:55] LABS: Urine Chloride 21 mmol/L (Not Establ.); Urine Sodium 10 mmol/L (Not Establ.)
[2019-03-10] MEDS: 0.9% Normal Saline 1,000 ML 100 ML IV (01:08)
[2019-03-10 02:02] LABS: Alcohol, Blood (Medical)-Serum < 3.0 mg/dL
[2019-03-10 02:17] LABS: Osmolality, Serum 237 mOsm/KG (280-301)
[2019-03-10 02:20] LABS: AST(SGOT) 15 U/L (15-37); Alanine Aminotransfer ALT/SGPT 15 U/L (13-56); Albumin, Serum 3.3 g/dL (3.2-5.0); Alkaline Phosphatase 78 U/L (45-117); Bilirubin, Direct 0.21 mg/dL (0.00-0.30); Globulin 2.4 g/dL (2.2-4.2); Magnesium 1.7 mg/dL (1.6-2.6); Phosphorus 3.8 mg/dL (2.5-4.9); Protein, Total 5.7 g/dL (6.4-8.2); Thyroid Stim Hormone (TSH) 1.67 uIU/mL (0.358-3.74)
[2019-03-10 02:23] LABS: Osmolality, Urine 419 mOsm/KG
[2019-03-10 06:36] LABS: Absolute Lymphocyte Count 0.91 X10^3/uL (0.83-4.51); Absolute Neutrophil Count 8.1 X10^3/uL (2.0-7.7); Basophil# 0.03 X10^3/uL; Basophil% 0.3 % (0-1); Eosinophil# 0.18 X10^3/uL; Eosinophils% 1.8 % (0-5); Hematocrit 36.8 % (37-47); Hemoglobin 12.8 g/dL (12.0-15.0); Lymphocyte # 0.91 X10^3/ul (4.0); Lymphocyte % 8.9 % (19-41); Mean Corp Hgb Conc 34.8 g/dL (32-36); Mean Corpuscular Hgb 29.6 pg (27.0-32.0); Mean Corpuscular Volume 85.2 fL (81-99); Mean Platelet Vol. 7.8 fl (6.2-12.0); Monocyte# 0.93 X10^3/uL; Monocyte% 9.1 % (0-10); NRBC Flagged by Analyzer 0 % (0-5); Neutrophil % 78.8 % (47-70); Platelet Count 312 K/mm3 (150-450); RBC Distribution Width SD 40.3 fl (35.1-43.9); Red Blood Count 4.32 M/mm3 (4.2-5.4); White Blood Count 10.3 K/mm3 (4.4-11.0)
[2019-03-10 06:51] LABS: Anion Gap 7 (5-15); BUN 5 mg/dL (7-18); Calcium,Total 7.9 mg/dL (8.5-10.1); Chloride 88 mmol/L (98-107); Creatinine, Serum 0.56 mg/dL (0.55-1.02); EST Glomerular Filtration Rate 116 mL/min (>60); Est Glom Filt Rate - Afr Amer 140 mL/min (>60); Estimated Creatinine Clearance 39.21 ml/min; Glucose 104 mg/dL (74-106); Potassium 3.8 mmol/L (3.5-5.1); Sodium Level 121 mmol/L (136-145)
[2019-03-10] MEDS: busPIRone 5 MG Tablet PO ×2 (08:50→22:43)
[2019-03-10] MEDS: DULoxetine Hcl 20 MG Capsule PO (08:50)
[2019-03-10] MEDS: Ibuprofen 400 MG Tablet PO (08:50)
[2019-03-10] MEDS: Folic Acid 1 MG Tablet PO ×2 (08:51→17:11)
[2019-03-10] MEDS: Thiamine Hydrochloride 100 MG Tablet PO (08:51)
[2019-03-10] MEDS: Atenolol 25 MG Tablet PO (08:51)
[2019-03-10] MEDS: Enoxaparin 40 MG/0.4 ML Syringe SC (08:54)
--- NOTE | 2019-03-10 09:24 | CASEMGMT ---
Assessment- SW spoke with patient and her daughter to complete assessment. Living situation- Patient lives alone in a 2 story home. However, she is set up on 1st floor. PCP: Dr Beba Townsend in [place] Specialists: None Pharmacy: [facility] in [place] DME: walker, shower chair, grab bars, and raised toilet seat ADL's/IADL's: Patient uses her walker regularly. She is independent with bathing, cleaning, medications, and meals. She does make sure someone is at her home when she bathes. Past SNF/rehab: None Past HH: None LW: Yes and it is on file at [facility] POA: Yes and it is on file at [facility]. Her daughter Ankita is her medical POA Plan: SW spoke with patient and her daughter about d/c plan. Patient's daughter Ankita said they were at patient's PCP's office and they were setting up home health and a referral to [facility]. Patient said she prefers to return home at d/c. SW told her we will follow and see how she does with therapy and what they recommend. SW asked patient about her drinking. She said she drinks a couple nights a week. She drinks 4-6 beers. Not interested in any resources at this time. Meg MCCULLOUGH MSW
[2019-03-10] MEDS: oxyCODONE 5 MG Tablet PO ×2 (11:44→18:28)
[2019-03-10 12:34] LABS: Sodium Level 125 mmol/L (136-145)
--- NOTE | 2019-03-10 13:47 | CASEMGMT ---
Addendum entered by Beatriz Rodriguez 03/10/19 14:38: This RN CM is still unable to reach pt's PCP at this time. This RN CM to room and pt's daughter is at bedside and she states that HHC was set up yesterday by PCP but she is unsure of the name at this time but states that they are all set up and ready to go. Daughter states no further concerns/needs at this time. Dee MCKEON CM Original Note: Pt stated that her PCP was setting up HHC for pt already but is unsure if it was completed and which HHC. Message left with pt's PCP office to call this RN CM back in regards to same at this time. Dee MCKEON CM
--- NOTE | 2019-03-10 15:27 | CHAPLAIN ---
Type of Pastoral Visit _x__ Initial Visit ___ Follow-up Visit ___ On-call Visit ___ General Patient Visit ___ Spiritual Assessment ___ Family Conference ___ Bereavement ___ Rapid Response ___ Code Blue ___ Other (describe below) Pastoral Care Referral From _x__ Patient ___ Family ___ Nurse ___ Physician ___ Literary Writer ___ Neighborhood Coordinator ___ Other (describe below) Sacrament/Intervention ___ Active listening ___ Anointing ___ Orthodoxy ___ Bereavement ___ Communion ___ Carolyn exploration ___ ___ Life review ___ Prayer ___ Reconciliation ___ Sacrament of Sick _x__ Supportive presence ___ Wedding _x__ Other (describe below) Pastoral Comments patient was receptive to offer of support but was eating her lunch at the time and had visitors with her; pt asked for a Bible; returned with a Bible and pt was grateful; more visitors had arrived and were with patient at this time
--- NOTE | 2019-03-10 15:56 | PN_ITS ---
Patient Problems: Active and Suspected Problems Hyponatremia (Acute) UTI (urinary tract infection) (Acute) UTI (urinary tract infection) (Suspected) Subjective: Patient was seen and examined today, her family members were in the room today when I examined her, patient's sodium is now 125-I am not sure the etiology for the patient's hyponatremia and I have elected to have nephrology see the patient while she is in the hospital. The sustainability manager recommended stopping IV fluids. Patient does not give a history to this examiner of heavy alcohol intake. - Physical Exam Vitals/I&O's: Vital Signs Temp Pulse Resp BP Pulse Ox 98.1 F 74 18 146/54 H 99 03/10/19 14:37 03/10/19 15:22 03/10/19 14:37 03/10/19 14:37 03/10/19 14:37 Oxygen Delivery Method Room Air Weight: 51.71 kg Body Mass Index (BMI) 22.2 Intake and Output for Last 24 Hours 03/08/19 03/09/19 03/10/19 23:59 23:59 23:59 Intake Total 2325 / 2325 Balance 2325 / 2325 General: Alert, Oriented x3, Cooperative, No apparent distress, Well developed, Well nourished HEENT: Atraumatic, PERRLA, EOMI, Normocephalic Oral: Moist Mucosa Neck: Supple, Trachea Midline, Thyroid Normal Size and Texture Lungs: Clear to auscultation, Normal air movement, No rhonchi, No wheeze, No rales Cardiovascular: Regular rate, Regular Rhythm, Normal S1, Normal S2, No murmurs Abdomen: Bowel Sounds Present, Soft, Non Tender, Non-Distended Extremities: No clubbing, No cyanosis, No edema, Capillary Refill Less than 3 Seconds Skin: No rashes, No breakdown Musculoskeletal: No Tenderness to Palpation of Joints or Extremities Neurological: Cranial nerves II-XII grossly intact, Neuro grossly intact, Sensory exam intact to light touch and pain Psych/Mental Status: Normal Affect, Appropriate, Alert and oriented to time, place, person, mood and affect Laboratory Results 03/09/19 20:03: WBC 13.8 H, RBC 4.82, Hgb 14.1, Hct 40.7, MCV 84.4, MCH 29.3, MCHC 34.6, RDW Std Deviation 39.6, RDW Coeff of Timo 12.8, Plt Count 354, MPV 7.8, Immature Gran % (Auto) 1.200 H, Neut % (Auto) 84.1 H, Lymph % (Auto) 6.2 L, [place] % (Auto) 7.5, Eos % (Auto) 0.9, Baso % (Auto) 0.1, Absolute Neuts (auto) 11.6 H, Absolute Lymphs (auto) 0.85, Nucleated RBC % 0 03/09/19 20:03: Sodium 117 L*, Potassium 4.0, Chloride 83 L, Carbon Dioxide 28.0, Anion Gap 6, BUN 6 L, Creatinine 0.54 L, Estim Creat Clear Calc 39.21, Est GFR (MDRD) Af Amer 146, Est GFR (MDRD) Non-Af 120, BUN/Creatinine Ratio 11.2, Glucose 111 H, Calcium 8.7 03/09/19 20:05: PT 13.1, INR 1.0 03/09/19 21:05: Urine Color Yellow, Urine Clarity Clear, Urine pH 6.0, Ur Specific [place] 1.020, Urine Protein 15 H, Urine Glucose (UA) Normal, Urine Ketones 5 H, Urine Occult Blood 10 H, Urine Nitrite Negative, Urine Bilirubin Negative, Urine Urobilinogen Normal, Ur Leukocyte Esterase 500 H, Urine RBC 0 SEEN, Urine WBC 25-50 SEEN, Ur Squamous Epith Cells 5-10 SEEN, Ur Renal Epithelial Cell 0-5 SEEN, Urine Bacteria 0 SEEN, Urine Mucus 0 SEEN 03/09/19 21:05: Urine Opiates Screen POSITIVE H, Urine Methadone Screen NEGATIVE, Ur Barbiturates Screen NEGATIVE, Ur Phencyclidine Scrn NEGATIVE, Ur Amphetamines Screen NEGATIVE, U Methamphetamin-MDMA NEGATIVE, U Benzodiazepines Scrn NEGATIVE, Urine Cocaine Screen NEGATIVE, U Cannabinoids Screen NEGATIVE, Ur Drug Screen Comment 03/09/19 21:05: Urine Osmolality 419, Ur Random Sodium 10, Urine Creatinine 138.00, Urine Chloride 21 03/10/19 01:05: Phosphorus 3.8, Magnesium 1.7, Total Bilirubin 0.50, Direct Bilirubin 0.21, AST 15, ALT 15, Alkaline Phosphatase 78, Total Protein 5.7 L, Albumin 3.3, Globulin 2.4, TSH 1.67 03/10/19 01:05: Serum Osmolality 237 L, Ethyl Alcohol < 3.0 03/10/19 06:25: WBC 10.3, RBC 4.32, Hgb 12.8, Hct 36.8 L, MCV 85.2, MCH 29.6, MCHC 34.8, RDW Std Deviation 40.3, RDW Coeff of Timo 13.0, Plt Count 312, MPV 7.8, Immature Gran % (Auto) 1.100 H, Neut % (Auto) 78.8 H, Lymph % (Auto) 8.9 L, [place] % (Auto) 9.1, Eos % (Auto) 1.8, Baso % (Auto) 0.3, Absolute Neuts (auto) 8.1 H, Absolute Lymphs (auto) 0.91, Nucleated RBC % 0 03/10/19 06:25: Sodium 121 L, Potassium 3.8, Chloride 88 L, Carbon Dioxide 26.0, Anion Gap 7, BUN 5 L, Creatinine 0.56, Estim Creat Clear Calc 39.21, Est GFR (MDRD) Af Amer 140, Est GFR (MDRD) Non-Af 116, BUN/Creatinine Ratio 9.0 L, Glucose 104, Calcium 7.9 L 03/10/19 12:10: Sodium 125 L Current Medications Atenolol (Tenormin (Beta Crow)) 25 mg PO DAILY [facility] Last Admin: 03/10/19 08:51 Dose: 25 mg Documented by: Buspirone HCl (Buspar) 5 mg PO BID [facility] Last Admin: 03/10/19 08:50 Dose: 5 mg Documented by: Duloxetine HCl (Cymbalta) 20 mg PO DAILY [facility] Last Admin: 03/10/19 08:50 Dose: 20 mg Documented by: Enoxaparin Sodium (Lovenox) 40 mg SC DAILY [facility] Last Admin: 03/10/19 08:54 Dose: 40 mg Documented by: [facility]) [facility] Last Admin: 03/10/19 08:51 Dose: 1 mg Documented by: Sodium Chloride () 250 mls @ 15 mls/hr IV .[id number] PRN PRN Reason: Saline Flush Sodium Chloride () 250 mls @ 15 mls/hr IV .[id number] PRN PRN Reason: Additional IVPB Infusion Ibuprofen (Motrin) 400 mg PO Q8H PRN PRN PRN Reason: Pain Score 1-3/Temp > 100.7 F Last Admin: 03/10/19 08:50 Dose: 400 mg Documented by: Lorazepam (Ativan) 1 mg PO Q6H PRN PRN PRN Reason: Alcohol Withdrawal Ondansetron HCl (Zofran) 4 mg IV Q8H PRN PRN PRN Reason: NAUSEA/VOMITING Oxycodone HCl (Oxyir) 5 mg PO Q6H PRN PRN PRN Reason: Pain Score 4-10/10 Last Admin: 03/10/19 11:44 Dose: 5 mg Documented by: Senna/Docusate Sodium (Senokot-S, Maryann-Colace) 2 tablet PO BID PRN PRN PRN Reason: Constipation Sodium Chloride () 10 - 40 ml IV UD PRN PRN Reason: SALINE FLUSH Thiamine HCl (Vitamin B1) 100 mg PO DAILYCM MICK Last Admin: 03/10/19 08:51 Dose: 100 mg Documented by: Medical Necessity - Tobacco Use Smoking Status: Never smoker Assessment/Plan All Active Problems Hyponatremia (Acute) UTI (urinary tract infection) (Acute) Severe hyponatremia (Acute) Alcohol abuse (Acute) #1 hyponatremia-etiology unclear at this point, nephrology will see the patient, sodium will be rechecked tomorrow. #2 essential hypertension-patient is not on any diuretics, she takes a beta- crow for her hypertension. #3 chronic back pain-this is being worked up as an outpatient #4 pyuria-patient does not have any signs or symptoms of urinary tract infection, I do not feel she has an acute cystitis at this time. #5 hypochloremia-etiology unknown Code Visit Inpatient E&M: 23364 Subs Hosp L2
--- NOTE | 2019-03-10 16:57 | CON.PCM_ITS ---
Consultation - Renal PCP/ Referring MD: Requesting physician: [] Primary care physician: Beba Townsend [employer]-C - History of Present Illness History of Present Illness: The patient is a 68 year old [facility] of depression, HTN and fibromyalgia . Pt pres ented with low Na level. pt presented earlier yesterday to ED for low back pain and was given morphine Pt then went to her PCP who did blood work and found to have low Na level at 1717 and asked her to go to ED In ED she received 2 L of NS and started on maintenance at 125 cc/hour Na level increased to 125 in 18 hours. IV fluid was stopped this am Pt denied any diarrhea. Not on Thiazide diuretics Pt is taking SSRI for depression. Pt said her appetite has been good and she has been eating and drinking well Never had headache but admitted having nausea yesterday. No blurry vision. No neurologic symptoms [] - Allergies Allergies: Allergies codeine Allergy (Verified 03/09/19 19:14) Nausea - Current Medications Current Medications: Current Medications Atenolol (Tenormin (Beta Crow)) 25 mg PO DAILY [facility] Last Admin: 03/10/19 08:51 Dose: 25 mg Documented by: Buspirone HCl (Buspar) 5 mg PO BID [facility] Last Admin: 03/10/19 08:50 Dose: 5 mg Documented by: Duloxetine HCl (Cymbalta) 20 mg PO DAILY [facility] Last Admin: 03/10/19 08:50 Dose: 20 mg Documented by: Enoxaparin Sodium (Lovenox) 40 mg SC DAILY [facility] Last Admin: 03/10/19 08:54 Dose: 40 mg Documented by: [facility] ([facility]) [facility] Last Admin: 03/10/19 08:51 Dose: 1 mg Documented by: Sodium Chloride () 250 mls @ 15 mls/hr IV .[id number] PRN PRN Reason: Saline Flush Sodium Chloride () 250 mls @ 15 mls/hr IV .[id number] PRN PRN Reason: Additional IVPB Infusion Ibuprofen (Motrin) 400 mg PO Q8H PRN PRN PRN Reason: Pain Score 1-3/Temp > 100.7 F Last Admin: 03/10/19 08:50 Dose: 400 mg Documented by: Lorazepam (Ativan) 1 mg PO Q6H PRN PRN PRN Reason: Alcohol Withdrawal Ondansetron HCl (Zofran) 4 mg IV Q8H PRN PRN PRN Reason: NAUSEA/VOMITING Oxycodone HCl (Oxyir) 5 mg PO Q6H PRN PRN PRN Reason: Pain Score 4-10/10 Last Admin: 03/10/19 11:44 Dose: 5 mg Documented by: Senna/Docusate Sodium (Senokot-S, Maryann-Colace) 2 tablet PO BID PRN PRN PRN Reason: Constipation Sodium Chloride () 10 - 40 ml IV UD PRN PRN Reason: SALINE FLUSH Thiamine HCl (Vitamin B1) 100 mg PO DAILYCM [facility]ICK Last Admin: 03/10/19 08:51 Dose: 100 mg Documented by: - Past Medical History Past Medical History (Chronic Problems): Chronic Problems Chronic back pain (Chronic) Depression (Chronic) Fibromyalgia (Chronic) Hypertension (Chronic) - Past Surgical History Surgical History: - - section, lipoma surgery. - Social History Smoking Status: Never smoker Alcohol: Heavy Drugs: None - Family History Maternal History Items: No pertinent history Paternal History Items: No pertinent history Patient Problems: Active and Suspected Problems Hyponatremia (Acute) UTI (urinary tract infection) (Suspected) - Physical Exam Vitals/I&O's: Vital Signs Temp Pulse Resp BP Pulse Ox 98.1 F 74 18 146/54 H 99 03/10/19 14:37 03/10/19 15:22 03/10/19 14:37 03/10/19 14:37 03/10/19 14:37 Oxygen Delivery Method Room Air Weight: 51.71 kg Body Mass Index (BMI) 22.2 Intake and Output for Last 24 Hours 03/08/19 03/09/19 03/10/19 23:59 23:59 23:59 Intake Total 2325 / 2325 Balance 2325 / 2325 General: Alert, Oriented x3 HEENT: Atraumatic Oral: Moist Mucosa Neck: Supple, No JVD Lungs: Clear to auscultation, Normal air movement, No rhonchi Cardiovascular: Regular rate, Regular Rhythm, Normal S1, Normal S2 Abdomen: Bowel Sounds Present, Soft, Non Tender Extremities: No clubbing, No cyanosis, No edema Musculoskeletal: No Tenderness to Palpation of Joints or Extremities Lymphatic: No Cervical, Supraclavicular, or Inguinal Adenopathy Neurological: Cranial nerves II-XII grossly intact, Neuro grossly intact Psych/Mental Status: Normal Affect Laboratory Results 03/09/19 20:03: WBC 13.8 H, RBC 4.82, Hgb 14.1, Hct 40.7, MCV 84.4, MCH 29.3, MCHC 34.6, RDW Std Deviation 39.6, RDW Coeff of Timo 12.8, Plt Count 354, MPV 7.8, Immature Gran % (Auto) 1.200 H, Neut % (Auto) 84.1 H, Lymph % (Auto) 6.2 L, Sawyer % (Auto) 7.5, Eos % (Auto) 0.9, Baso % (Auto) 0.1, Absolute Neuts (auto) 11.6 H, Absolute Lymphs (auto) 0.85, Nucleated RBC % 0 03/09/19 20:03: Sodium 117 L*, Potassium 4.0, Chloride 83 L, Carbon Dioxide 28.0, Anion Gap 6, BUN 6 L, Creatinine 0.54 L, Estim Creat Clear Calc 39.21, Est GFR (MDRD) Af Amer 146, Est GFR (MDRD) Non-Af 120, BUN/Creatinine Ratio 11.2, Glucose 111 H, Calcium 8.7 03/09/19 20:05: PT 13.1, INR 1.0 03/09/19 21:05: Urine Color Yellow, Urine Clarity Clear, Urine pH 6.0, Ur Specific [place] 1.020, Urine Protein 15 H, Urine Glucose (UA) Normal, Urine Ketones 5 H, Urine Occult Blood 10 H, Urine Nitrite Negative, Urine Bilirubin Negative, Urine Urobilinogen Normal, Ur Leukocyte Esterase 500 H, Urine RBC 0 SEEN, Urine WBC 25-50 SEEN, Ur Squamous Epith Cells 5-10 SEEN, Ur Renal Epithelial Cell 0-5 SEEN, Urine Bacteria 0 SEEN, Urine Mucus 0 SEEN 03/09/19 21:05: Urine Opiates Screen POSITIVE H, Urine Methadone Screen N EGATIVE, Ur Barbiturates Screen NEGATIVE, Ur Phencyclidine Scrn NEGATIVE, Ur Amphetamines Screen NEGATIVE, U Methamphetamin-MDMA NEGATIVE, U Benzodiazepines Scrn NEGATIVE, Urine Cocaine Screen NEGATIVE, U Cannabinoids Screen NEGATIVE, Ur Drug Screen Comment 03/09/19 21:05: Urine Osmolality 419, Ur Random Sodium 10, Urine Creatinine 138.00, Urine Chloride 21 03/10/19 01:05: Phosphorus 3.8, Magnesium 1.7, Total Bilirubin 0.50, Direct Bilirubin 0.21, AST 15, ALT 15, Alkaline Phosphatase 78, Total Protein 5.7 L, Albumin 3.3, Globulin 2.4, TSH 1.67 03/10/19 01:05: Serum Osmolality 237 L, Ethyl Alcohol < 3.0 03/10/19 06:25: WBC 10.3, RBC 4.32, Hgb 12.8, Hct 36.8 L, MCV 85.2, MCH 29.6, MCHC 34.8, RDW Std Deviation 40.3, RDW Coeff of Timo 13.0, Plt Count 312, MPV 7.8, Immature Gran % (Auto) 1.100 H, Neut % (Auto) 78.8 H, Lymph % (Auto) 8.9 L, Sawyer % (Auto) 9.1, Eos % (Auto) 1.8, Baso % (Auto) 0.3, Absolute Neuts (auto) 8.1 H, Absolute Lymphs (auto) 0.91, Nucleated RBC % 0 03/10/19 06:25: Sodium 121 L, Potassium 3.8, Chloride 88 L, Carbon Dioxide 26.0, Anion Gap 7, BUN 5 L, Creatinine 0.56, Estim Creat Clear Calc 39.21, Est GFR (MDRD) Af Amer 140, Est GFR (MDRD) Non-Af 116, BUN/Creatinine Ratio 9.0 L, Glucose 104, Calcium 7.9 L 03/10/19 12:10: Sodium 125 L Current Medications Atenolol (Tenormin (Beta Crow)) 25 mg PO DAILY [facility] Last Admin: 03/10/19 08:51 Dose: 25 mg Documented by: Buspirone HCl (Buspar) 5 mg PO BID [facility] Last Admin: 03/10/19 08:50 Dose: 5 mg Documented by: Duloxetine HCl (Cymbalta) 20 mg PO DAILY [facility] Last Admin: 03/10/19 08:50 Dose: 20 mg Documented by: Enoxaparin Sodium (Lovenox) 40 mg SC DAILY [facility] Last Admin: 03/10/19 08:54 Dose: 40 mg Documented by: Folic Acid ([facility] Acid) [facility] Last Admin: 03/10/19 08:51 Dose: 1 mg Documented by: Sodium Chloride () 250 mls @ 15 mls/hr IV .[id number] PRN PRN Reason: Saline Flush Sodium Chloride () 250 mls @ 15 mls/hr IV .[id number] PRN PRN Reason: Additional IVPB Infusion Ibuprofen (Motrin) 400 mg PO Q8H PRN PRN PRN Reason: Pain Score 1-3/Temp > 100.7 F Last Admin: 03/10/19 08:50 Dose: 400 mg Documented by: Lorazepam (Ativan) 1 mg PO Q6H PRN PRN PRN Reason: Alcohol Withdrawal Ondansetron HCl (Zofran) 4 mg IV Q8H PRN PRN PRN Reason: NAUSEA/VOMITING Oxycodone HCl (Oxyir) 5 mg PO Q6H PRN PRN PRN Reason: Pain Score 4-10/10 Last Admin: 03/10/19 11:44 Dose: 5 mg Documented by: Senna/Docusate Sodium (Senokot-S, Maryann-Colace) 2 tablet PO BID PRN PRN PRN Reason: Constipation Sodium Chloride () 10 - 40 ml IV UD PRN PRN Reason: SALINE FLUSH Thiamine HCl (Vitamin B1) [facility] Last Admin: 03/10/19 08:51 Dose: 100 mg Documented by: Assessment/Plan All Active Problems Hyponatremia (Acute) UTI (urinary tract infection) (Ruled-out) Severe hyponatremia (Acute) 1- Hyponatremia . Pt could have SSRI induced hyponatremia at baseline but worsening of hyponatremia is likely dehydration (with high urine osmolality and low urine Na). Na level improve appropriately with IVF I agree with stopping IVF to avoid overcorrection Will check Na level at 6 pm Encouraged solute intake Ok to continue SSRI No need for 3% NACL
[2019-03-10 18:36] LABS: Sodium Level 128 mmol/L (136-145)
[2019-03-11] MEDS: oxyCODONE 5 MG Tablet PO ×3 (00:35→14:06)
[2019-03-11 02:09] VITALS: BP 107/54; PULSE 73; RESP 16; TEMP 36.8; O2SAT 98
[2019-03-11 03:55] VITALS: PULSE 83
[2019-03-11 06:07] LABS: Anion Gap 4 (5-15); BUN 6 mg/dL (7-18); BUN/Creat Ratio 14.3 RATIO (10-20); Calcium,Total 7.8 mg/dL (8.5-10.1); Chloride 98 mmol/L (98-107); Creatinine, Serum 0.42 mg/dL (0.55-1.02); EST Glomerular Filtration Rate 160 mL/min (>60); Est Glom Filt Rate - Afr Amer 193 mL/min (>60); Estimated Creatinine Clearance 39.21 ml/min; Glucose 98 mg/dL (74-106); Sodium Level 129 mmol/L (136-145)
[2019-03-11 07:23] VITALS: PULSE 80
[2019-03-11 07:50] VITALS: O2SAT 98
[2019-03-11 08:11] VITALS: BP 144/79; PULSE 88; RESP 17; TEMP 36.7; O2SAT 100
[2019-03-11] MEDS: Atenolol 25 MG Tablet PO (08:14)
[2019-03-11] MEDS: DULoxetine Hcl 20 MG Capsule PO (08:15)
[2019-03-11] MEDS: Thiamine Hydrochloride 100 MG Tablet PO (08:15)
[2019-03-11] MEDS: busPIRone 5 MG Tablet PO (08:15)
[2019-03-11] MEDS: Folic Acid 1 MG Tablet PO (08:15)
--- NOTE | 2019-03-11 11:12 | DCINST_ITS ---
- Discharge Diagnoses Current Active Problems: Current Active and Chronic Problems Hyponatremia (Acute) You will use the following diet at home:: No restrictions Your food should be the consistency of: Regular Your liquids should be the consistency of: Regular/Thin Discharge Activity: Return to Normal Activity Weight Bearing Status: Full weight bearing Allergies/Adverse Reactions: Allergies codeine Allergy (Verified 03/09/19 19:14) Nausea Medications to take at Discharge Duloxetine HCl 20 mg PO BID 05/28/17 Atenolol [Tenormin (beta vika)] 25 mg PO DAILY 01/16/19 Buspirone HCl 5 mg PO BID 01/16/19 Oxycodone HCl/Acetaminophen [Oxycodone-Acetaminophen 10-325] 1 ea PO Q6H PRN PRN 02/28/19 Primary Care Physician: Beba Townsend NP-C [Primary Care Provider] - Please follow up with your Primary Care Physician in: NEXT WEDNESDAY-YOU WILL NEED YOUR BMP RECHECKED Test Results: Test results from this visit will be discussed in further detail at your follow- up appointment, if applicable.
[2019-03-11 13:25] VITALS: BP 138/78; PULSE 78; RESP 18; TEMP 36.8; O2SAT 100
--- NOTE | 2019-03-11 17:11 | DS.PCM_ITS ---
Discharge Date and Diagnosis Date of Admission: 03/09/19 Date of Discharge: 03/11/19 - Primary Discharge Diagnosis #1 hyponatremia-etiology unclear #2 essential hypertension #3 chronic back pain #4 pyuria-patient does not have any signs or symptoms of urinary tract infection, I do not feel she has an acute cystitis #5 hypochloremia-etiology unknown - Secondary Discharge Diagnosis Chronic Problems Chronic back pain (Chronic) Depression (Chronic) Fibromyalgia (Chronic) Hypertension (Chronic) Hospital Course and Treatment Operations: None Procedures: None Summary of Care Provided: The patient is a 68 year old F seen in the emergency room at [facility] after being instructed to go there for evaluation of an outpatient sodi um which was drawn and was abnormal at 115. Patient had no complaints of seizure activity or confusion. Labs obtained in the emergency room showed an elevated white blood cell count at 13.8, sodium was 117, chloride was 83. Patient's urinalysis revealed 25-50 WBCs but no red blood cells and no bacteria. There were 5-10 squamous cells seen. Patient was admitted to PCU for hyponatremia and was initially felt to have had an acute UTI, this examiner did not feel the patient indeed had a UTI and her antibiotics were not continued. Patient was seen in consultation by nephrology and repeat labs were obtained which showed a rise in the patient's sodium. The exact cause of the patient's hyponatremia was unknown. On 03/11/2019, patient was seen and examined: On examination she appeared in go od health and spirits. Vital signs as documented. Skin warm and dry and without overt rashes. Neck without JVD. Lungs clear. Heart exam notable for regular rhythm, normal sounds and absence of murmurs, rubs or gallops. Abdomen unremarkable and without evidence of organomegaly, masses, or abdominal aortic enlargement. Extremities nonedematous. Neuro: Cranial nerves II through XII are grossly intact, no focal motor deficits were noted, sensation to light touch and pinprick is intact. Psych: Patient is alert and oriented x3, she does not appear anxious or depressed On 03/11/2019, patient was seen and examined and felt to be in stable condition for discharge home. - Physical Exam Vitals/I&O's: Vital Signs Temp Pulse Resp BP Pulse Ox 98.2 F 78 18 138/78 H 100 03/11/19 13:25 03/11/19 13:25 03/11/19 13:25 03/11/19 13:25 03/11/19 13:25 Oxygen Delivery Method Room Air Weight: 51.71 kg Body Mass Index (BMI) 22.2 Intake and Output for Last 24 Hours 03/09/19 03/10/19 03/11/19 23:59 23:59 23:59 Intake Total 3150 / 3150 1660 / 1660 Balance 3150 / 3150 1660 / 1660 Microbiology Past 72 Hours 03/09/19 21:05 Urine, Clean Catch Urine Culture - Final Mixed Gram Positive Organisms Laboratory Results 03/10/19 18:12: Sodium 128 L 03/11/19 05:35: Sodium 129 L, Potassium 4.0, Chloride 98, Carbon Dioxide 27.0, Anion Gap 4 L, BUN 6 L, Creatinine 0.42 L, Estim Creat Clear Calc 39.21, Est GFR (MDRD) Af Amer 193, Est GFR (MDRD) Non-Af 160, BUN/Creatinine Ratio 14.3, Glucose 98, Calcium 7.8 L Discharge Activity: Return to Normal Activity Weight Bearing Status: Full weight bearing Home Medications: Medications to take at Discharge Duloxetine HCl 20 mg PO BID 05/28/17 Atenolol [Tenormin (beta vika)] 25 mg PO DAILY 01/16/19 Buspirone HCl 5 mg PO BID 01/16/19 Oxycodone HCl/Acetaminophen [Oxycodone-Acetaminophen 10-325] 1 ea PO Q6H PRN PRN 02/28/19 Primary Care Physician: Beba Townsend NP-C [Primary Care Provider] - Please follow up with your Primary Care Physician in: NEXT WEDNESDAY-YOU WILL NEED YOUR BMP RECHECKED Please Follow Up With: Beba Townsend NP-C Disposition: Home Minutes spent on discharge:: 31 Patient Condition:: Stable Medical Necessity - Tobacco Use Smoking Status: Never smoker Meaningful Use Info Meaningful Use Diagnoses (Choose all that apply): None applicable Code Visit Inpatient E&M: 14989 Disch Hosp
--- NOTE | 2019-03-13 14:34 | CASEMGMT ---
MIKE ALLEN DC PHONE CALL DC DATE: 03.11.19 DC Disposition: Home Diagnosis on Discharge: hyponatremia LACE/STRATA: 14/4 Intro role of CM to patient and her daughter. Reviewed medications, prescriptions were filled. Pt saw INFORMATICS PHYSICIAN today and had blood drawn. No questions re: instructions. Pt states she is doing well and no care improvement suggestions were given. Reinaldo PERKINS RN ACM
== END 2019-03-11 14:31 | disposition home or self-care (01) | DRG 641 ==
LOC: ED 22:50 → PCU 23:48
PROVIDERS: Internal Medicine Nephrology; Admitting Provider Hospitalist; Emergency Provider Emergency Medicine; Family Provider Nurse Practitioner Family; PCP Nurse Practitioner Family; Referring Provider Hospitalist; Visit Provider Internal Medicine
DX: E87.1 Hypo-osmolality and hyponatremia (principal); Z87.891 Personal history of nicotine dependence; I10 Essential (primary) hypertension; G89.29 Other chronic pain; M54.5 Low back pain; E87.8 Other disorders of electrolyte and fluid balance, not elsewhere classified; R82.81 Pyuria; M79.7 Fibromyalgia; F32.9 Major depressive disorder, single episode, unspecified
CPT/HCPCS: 36415; 80048; 80076; 80307; 80320; 81001; 82436; 82570; 83735; 83930; 83935; 84100; 84295; 84300; 84443; 85025; 85610; 87086; 87088; 93005; 96372; 97110; 97162; 97166; 97535; 99282; 99285; J7030; A4216; G0480

== ENCOUNTER → 2021-02-04 14:28 | Outpatient (CLI) | payer MEDICARE, SELFPAY ==
[2021-02-04 17:42] LABS: Absolute Lymphocyte Count 1.33 X10^3/uL (0.83-4.51); Basophil# 0.06 X10^3/uL; Basophil% 0.7 % (0-1); Eosinophil# 0.12 X10^3/uL; Eosinophils% 1.3 % (0-5); Hematocrit 47.1 % (37-47); Lymphocyte # 1.33 X10^3/ul (0.83-4.51); Lymphocyte % 14.6 % (19-41); Mean Corp Hgb Conc 31.8 g/dL (32-36); Mean Corpuscular Hgb 26.9 pg (27.0-32.0); Mean Corpuscular Volume 84.4 fL (81-99); Mean Platelet Vol. 9.3 fl (6.2-12.0); Monocyte# 0.57 X10^3/uL; Monocyte% 6.2 % (0-10); NRBC Flagged by Analyzer 0 % (0-5); Neutrophil # 7.02 X10^3/uL (2.7-7.7); Neutrophil % 76.9 % (47-70); Platelet Count 348 K/mm3 (150-450); RBC Distribution Width CV 14.8 % (11.6-14.6); RBC Distribution Width SD 45.1 fl (35.1-43.9); Red Blood Count 5.58 M/mm3 (4.2-5.4); White Blood Count 9.1 K/mm3 (4.4-11.0)
[2021-02-04 17:50] LABS: Erythrocyte Sedimentation Rate 11 mm/hr (0-30)
[2021-02-04 18:16] LABS: ALB/GLOB Ratio 0.9 RATIO (0.9-2.4); AST(SGOT) 18 U/L (15-37); Alanine Aminotransfer ALT/SGPT 19 U/L (13-56); Albumin, Serum 3.5 g/dL (3.2-5.0); Alkaline Phosphatase 91 U/L (45-117); Anion Gap 9 (5-15); BUN 9 mg/dL (7-18); BUN/Creat Ratio 12.2 RATIO (10-20); CRP < 2.90 mg/L (0.0-3.0); Calcium,Total 8.6 mg/dL (8.5-10.1); Chloride 105 mmol/L (98-107); Creatinine, Serum 0.74 mg/dL (0.55-1.02); EST Glomerular Filtration Rate 83 mL/min (>60); Est Glom Filt Rate - Afr Amer 100 mL/min (>60); Globulin 3.9 g/dL (2.2-4.2); Glucose 89 mg/dL (74-106); Potassium 3.5 mmol/L (3.5-5.1); Protein, Total 7.4 g/dL (6.4-8.2); Rheumatoid Factor < 10.0 IU/mL (<15); Sodium Level 139 mmol/L (136-145)
[2021-02-05 09:06] LABS: Hepatitis B Surface Antibody Non-Reactive; Hepatitis B Surface Antigen Non-Reactive (Nonreactive); Hepatitis C Antibody Non-Reactive (Nonreactive)
[2021-02-07 15:40] LABS: ANTINUCLEAR ANTIBODIES DIRECT Negative (Negative)
[2021-02-11 05:10] LABS: QNTFERON TB Mitogen Value > 10.00 IU/mL (.); QNTFERON TB Nil Value 0.08 IU/mL (.); QNTFERON TB1+ Ag Value 0.09 IU/mL (.); QNTFERON TB2+ Ag Value 0.06 IU/mL (.)
[2021-02-11 08:54] LABS: CCP IgG Antibodies 7 units (0-19); QNTIFERON TB Positive Criteria Negative (Negative)
== END ==
PROVIDERS: PCP Nurse Practitioner Family; Referring Provider Internal Medicine Rheumatology; Visit Provider Internal Medicine Rheumatology
DX: M06.4 Inflammatory polyarthropathy (principal); M79.7 Fibromyalgia; M47.897 Other spondylosis, lumbosacral region; I10 Essential (primary) hypertension; M81.0 Age-related osteoporosis without current pathological fracture; M18.0 Bilateral primary osteoarthritis of first carpometacarpal joints
CPT/HCPCS: 36415; 80053; 85025; 85652; 86038; 86140; 86200; 86431; 86480; 86706; 86803; 87340

== ENCOUNTER 2021-02-04 16:34 | Emergency (ER) | payer MEDICARE, SELFPAY ==
[2021-02-04 16:40] VITALS: BP 156/91; PULSE 72; RESP 18; TEMP 36.4; O2SAT 98; BMI 28.8
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
[2021-02-04] MEDS: oxyCODONE 5 MG Tablet PO ×2 (17:50→19:43)
[2021-02-04] MEDS: Ondansetron ODT 4 MG Tablet PO ×2 (17:50→20:01)
[2021-02-04 17:51] VITALS: O2SAT 96
[2021-02-04 18:51] VITALS: PULSE 74; RESP 15; O2SAT 98
[2021-02-04 20:00] VITALS: PULSE 76; RESP 22
[2021-02-04] MEDS: Pantoprazole Sodium 40 MG Tablet PO (20:01)
[2021-02-04 21:20] VITALS: BP 146/87; PULSE 81; RESP 18; O2SAT 96
== END 2021-02-04 21:21 | disposition home or self-care (01) ==
PROVIDERS: Emergency Provider Emergency Medicine; PCP Nurse Practitioner Family
DX: S22.20XA Unspecified fracture of sternum, initial encounter for closed fracture (principal); K44.9 Diaphragmatic hernia without obstruction or gangrene; F32.A Depression, unspecified; M79.7 Fibromyalgia; I10 Essential (primary) hypertension; M06.9 Rheumatoid arthritis, unspecified; Z79.899 Other long term (current) drug therapy; V43.52XA Car driver injured in collision with other type car in traffic accident, initial encounter; Y93.I9 Activity, other involving external motion; Y92.410 Unspecified street and highway as the place of occurrence of the external cause; Y99.8 Other external cause status
CPT/HCPCS: 71250; 93005; 99285

== ENCOUNTER → 2021-09-01 | Outpatient (CLI) | payer MEDICARE, SELFPAY ==
--- NOTE | 2021-09-01 16:04 | RAD_ITS ---
STUDY: X-RAY - LUMBAR SPINE REASON FOR EXAM: Female, 70 years old. Intervertebral disc disorders with radiculopathy, lumbosacral reg TECHNIQUE: XR Spine Lumbar 2 or 3 Views COMPARISON: 02/28/2019 FINDINGS: Normal lumbar lordosis. There is no substantial scoliosis. There is a stable grade 1 anterolisthesis of L4 on L5. Kyphoplasty changes. Since the prior study, there has been increased compression deformity of L4 and L3. There is multilevel endplate spondylosis of the lumbar vertebrae. There is multi-level degenerative disc disease with multi-level disc space narrowing. There are atherosclerotic vascular calcifications. The soft tissue structures are unremarkable. RAD/Lumbar Spine 2 or 3 Views IMPRESSION: Degenerative changes of the spine, as detailed above. Since the prior study, there has been increased compression deformity of L4 and L3. Electronically Signed: Sid Emanuel MD at 16:29 EDT ,
== END | disposition home or self-care (01) ==
PROVIDERS: PCP Nurse Practitioner Family; Referring Provider Anesthesiology Pain Medicine; Visit Provider Anesthesiology Pain Medicine
DX: M51.17 Intervertebral disc disorders with radiculopathy, lumbosacral region (principal)
CPT/HCPCS: 72100

== ENCOUNTER → 2021-10-23 | Outpatient (CLI) | payer MEDICARE, SELFPAY ==
--- NOTE | 2021-10-23 14:29 | RAD_ITS ---
HISTORY: HIP PAIN. TECHNIQUE: XR Hip Unilateral with Pelvis when performed; 2-3 Views. COMPARISON: None. FINDINGS: OSSEOUS STRUCTURES: No acute displaced fracture identified. Note that overlapping bowel shadows may obscure osseous detail. Generalized osteopenia. JOINT SPACES: No dislocation. Degenerative changes of the hips. SOFT TISSUES: Vertebroplasty of chronic lumbar compression fractures with intravasation of cement in the paraspinal soft tissues. . RAD/HIP, UNI W/ Pelvis 2-3 Views IMPRESSION: No acute displaced fracture or dislocation identified in the right hip. Electronically Signed: Roxie Robbins MD at 15:20 EDT ,
== END | disposition home or self-care (01) ==
PROVIDERS: PCP Nurse Practitioner Family; Referring Provider Anesthesiology Pain Medicine; Visit Provider Anesthesiology Pain Medicine
DX: M25.551 Pain in right hip (principal); M85.80 Other specified disorders of bone density and structure, unspecified site
CPT/HCPCS: 73502

== ENCOUNTER 2023-01-30 15:12 | Emergency (ER) | payer MEDICARE, SELFPAY ==
[2023-01-30 15:13] VITALS: BP 164/103; PULSE 73; RESP 16; TEMP 35.6; O2SAT 100
[2023-01-30 15:14] VITALS: BMI 22.5
--- NOTE | 2023-01-30 15:34 | EDS_ITS ---
HPI History of Present Illness Chief Complaint: Back Detail of Chief Complaint: Chronic back pain. No fall, injury or trauma. Informant: patient and family Onset/Context/Timing Onset: Days Context: Gradual Onset Injury: bending Timing: Continuous Quality: Sharp Location: Thoracic Current Severity: Mild Maximum Severity: Moderate Worsened by: improves with Movement Relieved by: Remaining Still Associated Symptoms Associated Symptoms: Negative for Numbness, Tingling, Radiation to Right Leg, Radiation to Left Leg, Fever, Abdominal Pain, Dysuria, Unable to Ambulate, Unable to Transfer, Urinary Retention, Urinary Incontinence, Constipation or Fecal Incontinence Narrative Narrative: 72-year-old female known history of compression fractures of both the thoracic and lumbar spine. Also history of fibromyalgia and rheumatoid arthritis. Acute on chronic thoracic spine pain. She believes she has additional compression fra ctures. She already sees pain management has appointment to see Dr. Reyes on Wednesday. She denies any falls injury or trauma. No fever. Prior similar symptoms: Yes Recent Illness/Hospitalization: No [facility] Medical History Acute bilateral low back pain with bilateral sciatica Chronic back pain Depression Fibromyalgia Hypertension Rheumatoid arthritis Severe hyponatremia Home Medications duloxetine 20 mg capsule,delayed release 20 mg PO BID depression 05/28/17 [History Last Taken 03/09/19 10:00] atenolol 25 mg tablet 25 mg PO DAILY blood pressure 01/16/19 [History Last Taken 03/08/19] buspirone 5 mg tablet 5 mg PO BID anxiety 01/16/19 [History Last Taken 03/09/19 10:00] oxycodone-acetaminophen 10 mg-325 mg tablet 1 ea PO Q6H PRN PRN Pain Or Fever 02/28/19 [History Last Taken 03/09/19] ondansetron 4 mg disintegrating tablet 4 mg PO Q8H PRN nausea and vomiting #10 tabs 02/04/21 [Rx Last Taken Unknown] oxycodone-acetaminophen 5 mg-325 mg tablet (Percocet) 1 tab PO Q6H PRN pain 4 days #14 tabs 02/04/21 [Rx Last Taken Unknown] oxycodone-acetaminophen 5 mg-325 mg tablet (Percocet) 1 tab PO Q6H PRN pain 3 days #10 tabs 01/30/23 [Rx Last Taken Unknown] Allergy/AdvReac Type Severity Reaction Status Date / Time codeine Allergy Nausea Verified 01/30/23 15:12 Social History Smoking Status: Never smoker ROS ROS ED ROS Narrative Denies recent illness. Review of Systems ROS Unobtainable: Denies due to encephalopathy Constitutional Constitutional ED: Denies chills or fever(s) Eyes Eyes: Denies blurry vision ENT ENT ED: Denies ear pain Respiratory/Chest Respiratory/Chest: Denies dyspnea Gastrointestinal Gastrointestinal: Denies abdominal pain Genitourinary Genitourinary ED: Denies dysuria or hematuria Musculoskeletal Musculoskeletal: Reports back pain; Denies arthralgias, myalgias or neck pain Integumentary Denies abscess Neurologic Neurologic: Denies headache(s) Psychiatric Psychiatric: Denies anxiety Endocrine Endocrinology: Denies cold intolerance Hematologic/Lymphatic Hematologic/Lymphatic: Denies easy bleeding Allergic/Immunologic Allergic/Immunologic ED: Denies mouth swelling EXAM Physical Exam Narrative Exam Narrative: Well-appearing 72-year-old female. Vital signs are stable afebrile. Pulse ox 100% room air no hypoxia. H EENT exam unremarkable atraumatic. Moist membranes. Neck nontender. Lungs clear to auscultation bilaterally. Heart regular rhythm rate about 70 no murmur. Chest wall and ribs nontender. Abdomen soft nontender. Moving all 4 extremities. Normal cheese processor strength. Normal dorsi plantarflexion. Nontender no edema. Chronic changes of her wrist and hand consistent with rheumatoid arthritis. Back she has a significant kyphosis. She has tenderness along her thoracic spine. No signs of trauma. No redness or warmth. No bruising. Neurologically she is awake and alert. Moving all 4 extremities. No cauda equina or saddle anesthesia. Const Vital Signs: 01/30/23 15:13 Temperature 96.1 F L Temperature Source Temporal Pulse Rate 73 Respiratory Rate 16 Blood Pressure 164/103 H Blood Pressure Mean 123 Pulse Ox 100 Oxygen Delivery Method Room Air Positive well nourished and well developed; Negative for obese, cachectic, contractures or unkempt General Appearance ED: well developed and NAD; Negative for unkempt, cachectic, contractures or pallor Nutritional Appearance: Negative for cachectic or obese HEENT Reports moist mucous membranes Negative for trauma or tenderness Eyes PERRL and EOMs intact bilaterally General Eye ED: Negative for pale conjunctiva or scleral icterus Neck no lymphadenopathy, supple and no JVD General: Negative for tenderness Chest Wall Chest: Negative for other Resp normal respiratory effort and clear to auscultation bilaterally Effort and Inspection: Negative for pain with movement Auscultation: Negative for rales, rhonchi or wheezes Cardio regular rate, regular rhythm, S1 normal heart sound, S2 normal heart sound and no murmurs Palpation: Negative for palpable S3 Rate: Negative for bradycardia or tachycardic Rhythm: Negative for abnormal rhythm Bruits: Negative for other GI normal to inspection, nondistended, normoactive bowel sounds, soft to palpation, non-tender, non-distended and no masses Inspection: Negative for abdominal distention Palpation: Negative for tender or guarding Back/Spine normal to inspection; Negative for no thoracic nor lumbar tenderness Back/Spine Narrative: Kyphosis. Thoracic tenderness. No redness or warmth. No signs of trauma. Cervical Spine: Negative for cervical spine tenderness Thoracic Spine / Upper Back: Negative for paraspinal muscle tenderness Lumbar Spine / Lower Back: ROM limited Extremity normal to inspection and no clubbing, cyanosis or edema General Extremety ED: Negative for edema or tenderness General Extremity: Negative for edema Neuro oriented x3 and no sensory deficits noted Sensorium / Orientation: alert; Negative for confused, lethargic or stuporous Motor Exam: strength 5/5 throughout Psych mental status grossly normal Appearance: Negative for unkempt Attitude: No agitated Mood & Affect: Negative for depressed, sad or tearful Skin no rashes or lesions noted and no wounds General Skin Exam: Negative for jaundice or pallor Lesions: No lesion noted Rashes: No rashes noted Trauma: Negative for abrasion or puncture Wounds: Negative for wounds noted MDM MDM MDM Narrative Medical decision making narrative: 72-year-old female on is atraumatic acute on chronic back pain with a history of both thoracic and lumbar compression fractures. She has had kyphoplasty done 2 or 3 times. She sees pain management has appointment to see Dr. Cabrera on Wednesday. She is complaining more thoracic back pain. No trauma. She does not want anything for pain at this time I did offer. X-ray of her thoracic spine will be obtained. Exam patient is doing well at 4:40 PM. She is comfortable being discharged home. Write her for 10 Percocet. She sees her pain management doctor on Wednesday. History & Record Review Discussion w/independent historian: Patient Additional record(s) reviewed:: Prior inpatient record, Prior outpatient record, Prior ED visit and Prior labs Radiography Diagnostic Testing: Clinical Impression(s) from Imaging Studies Thoracic Spine X-Ray 01/30/23 15:35 IMPRESSION: 1. Medium to large hiatal hernia. 2. Thoracic and lumbar compression fractures some status post augmentation and others identified as above similar to the prior CT. No definite acute compression fracture. Consider follow-up CT for further evaluation. 3. Likely scarring or atelectasis in the right lower lobe. Electronically Signed: Conor Joel, at 16:18 EST , Thoracic spine x-ray, 2 views, interpreted by myself and the radiologist shows multiple old compression fractures of both thoracic and lumbar spine. No specific new ones but very severe osteopenia and osteoporosis would be difficult to ascertain significant change from prior. Seen on prior films. Discharge Plan Triage Chief Complaint: Back ED Provider: Srinath Arguelles Dx/Rx/DC Orders Clinical Impression: Back pain, History of vertebral compression fracture, Hx of rheumatoid arthritis Instructions: Compression Fx Prescriptions: New oxycodone-acetaminophen [Percocet] 5-325 mg tablet 1 tab PO Q6H PRN (Reason: pain) 3 Days Qty: 10 0RF No Action duloxetine 20 MG capsule,delayed release(DR/EC) 20 mg PO BID Patient Comments: TAKE ONE CAPSULE BY MOUTH AT BEDTIME buspirone 5 MG tablet 5 mg PO BID Patient Comments: TAKE 1 TABLET BY MOUTH TWICE DAILY atenolol 25 MG tablet 25 mg PO DAILY Patient Comments: TAKE 1 TABLET BY MOUTH ONCE DAILY oxycodone-acetaminophen 1 EACH tablet 1 ea PO Q6H PRN PRN (Reason: Pain Or Fever) oxycodone-acetaminophen [Percocet] 5-325 mg tablet 1 tab PO Q6H PRN (Reason: pain) 4 Days Qty: 14 0RF ondansetron 4 mg tablet,disintegrating 4 mg PO Q8H PRN (Reason: nausea and vomiting) Qty: 10 0RF Primary Care Provider: Dianne Peace Referrals: Rosas Reyes MD [Med Staff - Active Staff] - Keep Karine appointment Beba Townsend NP, [employer] CLERK-C [Non-Staff] - Activity Restrictions/Additional Instructions: Percocet as needed for pain. Follow-up with your pain management doctor on Wednesday. Continue fluids, fiber and stool softener as needed to prevent constipation due to the pain medication. Disposition Disposition: Home, Self Care
--- NOTE | 2023-01-30 15:35 | RAD_ITS ---
EXAM: XR THORACIC SPINE, 2 VIEWS CLINICAL INDICATION: compression fractures TECHNIQUE: Frontal and lateral views of the thoracic spine. COMPARISON: CTA chest, abdomen, pelvis dated 11/30/2022 FINDINGS: VERTEBRAE: L1-L4 compression fractures status post vertebral augmentation and T7-T12 fractures without augmentation changes are again identified similar to the prior examination. Partial lumbarization of S1. Redemonstration of degenerative anterolisthesis of L5 upon S1 and redemonstration of L5 compression fracture. Exaggerated thoracic kyphosis and lumbar lordosis. Multilevel facet arthrosis. OTHER BONES/JOINTS: Postoperative changes of the right shoulder. DISC SPACES: Multilevel intervertebral disc height loss. LUNGS AND PLEURAL SPACES: Likely scarring or atelectasis in the right lower lobe. MEDIASTINUM: Medium to large hiatal hernia. RAD/Thoracic Spine 2 Views IMPRESSION: 1. Medium to large hiatal hernia. 2. Thoracic and lumbar compression fractures some status post augmentation and others identified as above similar to the prior CT. No definite acute compression fracture. Consider follow-up CT for further evaluation. 3. Likely scarring or atelectasis in the right lower lobe. Electronically Signed: Conor Joel DO at 16:18 EST ,
== END 2023-01-30 17:08 | disposition home or self-care (01) ==
PROVIDERS: Emergency Provider Emergency Medicine; PCP Family Medicine; Visit Provider Emergency Medicine
DX: M54.9 Dorsalgia, unspecified (principal); M06.9 Rheumatoid arthritis, unspecified; I10 Essential (primary) hypertension; G89.29 Other chronic pain; Z87.81 Personal history of (healed) traumatic fracture; M79.7 Fibromyalgia
CPT/HCPCS: 72070; 99282